=== PATIENT | female | born 1950 | race Caucasian/White ===

== ENCOUNTER 2023-12-03 06:13 | Day surgery (SDC) | payer MEDICARE, SELFPAY ==
--- NOTE | 2023-11-16 09:05 | CM ---
Patient is scheduled for an elective L Reverse TSA on 12/03/23- she is a same day patient. Spoke with patient prior to surgery. Introduced role of Orthopedic Navigator. Patient reports that she lives alone in a two story home. Currently she functions
independently. She has a stair glide to the second floor (she occasionally uses this), walkers, cane and transfer tub bench. She has never had VN services. PCP is Dr. Nadia Brenner.
Discussed orthopedic program and post surgical plans. Patient will return home when directed by surgeon. Reviewed MD follow up and transition to outpatient therapy. Patient is in agreement with tentative plan and states that her niece will be
staying with her for about a week.
Plan: Orthopedic Navigator will be involved in the care of patient after surgery and will reassess discharge needs at that time.
[2023-11-20 13:04] VITALS: BMI 41.4
[2023-11-20 13:46] LABS: Hematocrit 40.7 % (37.0-47.0); Hemoglobin 13.4 g/dL (12.0-16.0); Mean Corp Hgb Conc. 32.9 g/dL (33.0-37.0); Mean Corpuscular Hgb 31.8 pg (27.0-31.0); Mean Corpuscular Volume 96.4 fL (81.0-99.0); Mean Platelet Volume 9.2 fL (7.4-10.4); Platelet Count 332 10^3/uL (130-400); Red Blood Cell Count 4.22 10^6/uL (4.20-5.40); Red Cell Dist. Width 12.4 % (11.5-14.5)
[2023-11-20 13:59] LABS: ALT (SGPT) 22 U/L (0-35); AST (SGOT) 27 U/L (14-36); Albumin 4.4 g/dl (3.5-5.0); Alkaline Phosphatase 102 U/L (38-126); Blood Urea Nitrogen 21 mg/dl (7-17); Calcium 9.8 mg/dl (8.4-10.2); Carbon Dioxide 29 mmol/L (22-30); Chloride 100 mmol/L (98-107); Estimated Creatinine Clearance 99 ml/min; Glucose 105 mg/dl (70-99); Glycohemoglobin (HgbA1c) 5.9 % (4.0-5.6); Potassium 4.4 mmol/L (3.5-5.1); Sodium 138 mmol/L (135-145); Total Bilirubin 0.6 mg/dl (0.2-1.3); Total Protein 7.7 g/dl (6.3-8.2); eGFR > 60.00
[2023-11-20 15:59] VITALS: BMI 41.4
--- NOTE | 2023-11-30 13:26 | PTCARENOTE ---
Dr. Wesley guzman- 'ok' for SDS procedure
[2023-12-03] VITALS (11 sets, daily range): BP systolic 103–147; BP diastolic 60–88
[2023-12-03] MEDS: NORMOSOL-R 1000 IV (07:52)
--- NOTE | 2023-12-03 08:23 | SLEEP.APNEA ---
Sleep Apnea Order
-
Patient screened as High Risk for Sleep Apnea on Stop Bang Questionnaire. Patient referred to [facility] for Pre-Study.

Name: ANA MAST
: 1950
Home Phone: Use [email or web address] instead
Cell Phone: [f_Reg Other Phone]
Work Phone:
Address: [address] [place] [address]
City: [place]
State: [place]
Zip: [f_[facility] Zip]
Family Physician: Nadia Brenner
Height 5 ft 3.5 in
Actual Weight 107.6 kg
Body Mass Index (BMI) 41.4
Ordering Provider: Anne Negrete PA-C
[2023-12-03] MEDS: ANCEF 5 IV (13:28)
== END 2023-12-03 14:20 | disposition home or self-care (01) ==
LOC: SDS 06:13
PROVIDERS: ATTENDING PHYSICIAN Orthopaedic Surgery Hand Surgery; FAMILY PHYSICIAN Family Medicine; OTHER PHYSICIAN Internal Medicine Cardiovascular Disease
DX: M19.012 Primary osteoarthritis, left shoulder (principal)
CPT/HCPCS: 23472; 36415; 73020; 80053; 83036; 85027; 87070; C1713; C1776

== ENCOUNTER → 2024-05-16 12:25 | Outpatient (REF) | payer MEDICARE, SELFPAY ==
[2024-05-16 13:34] VITALS: BMI 38.7
[2024-05-16 13:47] LABS: Hematocrit 38.9 % (37.0-47.0); Hemoglobin 12.9 g/dL (12.0-16.0); Mean Corp Hgb Conc. 33.2 g/dL (33.0-37.0); Mean Corpuscular Hgb 31.5 pg (27.0-31.0); Mean Corpuscular Volume 94.9 fL (81.0-99.0); Mean Platelet Volume 8.9 fL (7.4-10.4); Platelet Count 309 10^3/uL (130-400); Red Cell Dist. Width 13.2 % (11.5-14.5); White Blood Cell Count 6.2 10^3/uL (4.8-10.8)
[2024-05-16 14:01] LABS: ALT (SGPT) 22 U/L (0-35); AST (SGOT) 27 U/L (14-36); Albumin 4.6 g/dl (3.5-5.0); Alkaline Phosphatase 100 U/L (38-126); Blood Urea Nitrogen 18 mg/dl (7-17); Calcium 9.7 mg/dl (8.4-10.2); Carbon Dioxide 29 mmol/L (22-30); Chloride 101 mmol/L (98-107); Estimated Creatinine Clearance 66 ml/min; Glucose 97 mg/dl (70-99); Potassium 4.6 mmol/L (3.5-5.1); Sodium 138 mmol/L (135-145); Total Bilirubin 0.6 mg/dl (0.2-1.3); Total Protein 7.7 g/dl (6.3-8.2); eGFR > 60.00
== END ==
LOC: SDSPAT 12:25
PROVIDERS: ATTENDING PHYSICIAN Orthopaedic Surgery Orthopaedic Surgery of the Spine; FAMILY PHYSICIAN Family Medicine; OTHER PHYSICIAN Internal Medicine Cardiovascular Disease
DX: Z01.818 Encounter for other preprocedural examination (principal)
CPT/HCPCS: 36415; 80053; 85027; 87070

== ENCOUNTER 2024-05-28 06:01 | Day surgery (SDC) | payer MEDICARE, SELFPAY ==
[2024-05-16 16:39] VITALS: BMI 38.7
[2024-05-21 16:41] VITALS: BMI 38.7
--- NOTE | 2024-05-27 10:36 | VNURNOTE ---
Home health liaison called patient and spoke to her about VN services after her surgery. Explained visit schedule, frequency, homebound status. Patient is agreeable and understands that visits in the home will be 1-2 x week to assess and teach
medical management. Patient is aware visiting nurse will contact her for SOC visit 1-2 days after being discharged from . [facility] referral sent in [facility].
[2024-05-28] VITALS (15 sets, daily range): BP systolic 113–142; BP diastolic 54–83
[2024-05-28] MEDS: LYRICA 150 MG PO (08:34)
[2024-05-28] MEDS: CELEBREX 200 MG PO (08:34)
[2024-05-28] MEDS: SKELAXIN 800 MG PO ×3 (08:34→22:35)
[2024-05-28] MEDS: TYLENOL 1000 MG PO ×3 (08:35→20:37)
[2024-05-28] MEDS: NORMOSOL-R 1000 IV ×3 (08:36→20:48)
[2024-05-28] MEDS: DILAUDID 0.5 MG IV ×2 (11:57→12:10)
--- NOTE | 2024-05-28 12:07 | W.DS.TRANS ---
DC Summary - Manager Protein
-
Discharge Instructions:
Sleep Apnea Risk Intermediate
Discharge Diagnosis/Procedures L4-[address] Coombs 05/28/24
Diet As tolerated
Activity No strenuous activity
Driving Restrictions No driving
Instructions:
Stand-Alone Forms:
Changes to Home Medications: Yes
Discharge Medications:
DC Medications w/original date entered in [facility]
cholecalciferol (vitamin D3) 50 mcg (2,000 unit) capsule (Vitamin D3) 2,000 unit PO DAILY 12/01/15
Lactobacills gasseri-Bifidobac bifidum,longum 1.5 billion cell capsule (Probiotic Colon Care) 1 cap PO DAILY 11/19/23
atorvastatin 20 mg tablet 20 mg PO HS 11/19/23
biotin 5,000 mcg chewable tablet 5,000 mcg PO DAILY 11/19/23
cetirizine 5 mg tablet 5 mg PO DAILY PRN allergy 11/19/23
frfslhkhheb-nucgunlss-ape C-Mn 500 mg-400 mg capsule 3 cap PO DAILY 11/19/23
levothyroxine 200 mcg tablet (Synthroid) 200 mcg PO DAILY 11/19/23
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
zfxxdsvm-mslb-vbro 8 mg-folic 400 mcg-K 50 mcg-lutein 300 mcg tablet (Centrum Silver Women) 1 tab PO DAILY 11/19/23
omeprazole 20 mg tablet,delayed release 20 mg PO HS 11/19/23
psyllium husk 3.4 gram/5.4 gram oral powder (Metamucil) 1 - 2 tbsp PO PRN PRN constipation 11/19/23
cyclobenzaprine 10 mg tablet 10 mg PO DAILYPRN PRN muscle spasms #0 tabs 12/03/23
aspirin 81 mg tablet,delayed release 81 mg PO DAILY 05/21/24
diclofenac sodium 1 % topical gel 2 g topical PRN PRN joint pain 05/21/24
diphenhydramine HCl 25 mg tablet 50 mg PO PRN PRN Idiopathic angioedema 05/21/24
gabapentin 300 mg capsule 300 mg PO HS 05/21/24
Saccharomyces boulardii 250 mg capsule (Florastor) 250 mg PO BID #1 cap 05/28/24
acetaminophen 325 mg capsule 650 mg (2 x 325 mg) PO QID #60 caps 05/28/24
cephalexin 500 mg capsule 500 mg PO QID infection prevention #20 caps 05/28/24
dexamethasone 4 mg tablet 4 mg PO BID inflammation #6 tabs 05/28/24
docusate sodium 100 mg capsule (Colace) 100 mg PO BID #0 caps 05/28/24
hydromorphone 2 mg tablet 2 mg PO Q4H PRN moderate-severe pain #30 tabs 05/28/24
magnesium hydroxide 400 mg/5 mL oral suspension (Milk of Magnesia) 30 ml PO HS PRN Constipation #1 mL 05/28/24
ondansetron 4 mg disintegrating tablet 4 mg PO Q6H PRN n/v #20 tabs 05/28/24
sennosides 8.6 mg tablet (senna) 17.2 mg (2 x 8.6 mg) PO BID #0 tabs 05/28/24
tramadol 50 mg tablet 50 mg PO BID #0 tabs 05/28/24
Home Medication Changes
cephalexin 500 mg capsule 500 mg PO QID infection prevention #20 caps 05/28/24
dexamethasone 4 mg tablet 4 mg PO BID inflammation #6 tabs 05/28/24
docusate sodium 100 mg capsule (Colace) 100 mg PO BID #0 caps 05/28/24
hydromorphone 2 mg tablet 2 mg PO Q4H PRN moderate-severe pain #30 tabs 05/28/24
magnesium hydroxide 400 mg/5 mL oral suspension (Milk of Magnesia) 30 ml PO HS PRN Constipation #1 mL 05/28/24
ondansetron 4 mg disintegrating tablet 4 mg PO Q6H PRN n/v #20 tabs 05/28/24
sennosides 8.6 mg tablet (senna) 17.2 mg (2 x 8.6 mg) PO BID #0 tabs 05/28/24
tramadol 50 mg tablet 50 mg PO BID #0 tabs 05/28/24
Pending Results: No
[2024-05-28] MEDS: ULTRAM 50 MG PO ×3 (14:33→22:34)
--- NOTE | 2024-05-28 17:41 | PTCARENOTE ---
Patient admitted from [facility] L4-L5 PSF with instrumentation.The patient rates her pain at a 3 out of 10.Vital signs are stable.Neurovascular assessment is within normal limits and ongoing.The dressing is intact without drainage.The patient is in
her bed with the call brothers in reach.
[2024-05-28] MEDS: VISBIOME 1 CAP PO (18:16)
[2024-05-28] MEDS: ANCEF 5 IV (18:16)
[2024-05-28] MEDS: SYNTHROID PO (18:16)
[2024-05-28] MEDS: SENOKOT 17.2 MG PO (20:36)
[2024-05-28] MEDS: COLACE 100 MG PO (20:36)
[2024-05-28] MEDS: LYRICA 75 MG PO (20:37)
[2024-05-28] MEDS: PROTONIX 40 MG PO (22:34)
[2024-05-28] MEDS: SINGULAIR 10 MG PO (22:35)
[2024-05-28] MEDS: LIPITOR 20 MG PO (22:35)
[2024-05-29] MEDS: ANCEF 5 IV (02:30)
[2024-05-29] MEDS: TYLENOL 1000 MG PO ×3 (02:30→15:00)
[2024-05-29] MEDS: ULTRAM 50 MG PO ×3 (02:30→09:17)
[2024-05-29] MEDS: SYNTHROID 200 MCG PO (06:02)
[2024-05-29] MEDS: SKELAXIN PO (06:03)
[2024-05-29 07:53] VITALS: BP 132/64
[2024-05-29 08:54] LABS: Hematocrit 34.1 % (37.0-47.0); Hemoglobin 11.2 g/dL (12.0-16.0)
[2024-05-29] MEDS: SENOKOT 17.2 MG PO (09:17)
[2024-05-29] MEDS: VISBIOME 1 CAP PO (09:17)
[2024-05-29] MEDS: LYRICA 75 MG PO (09:17)
[2024-05-29] MEDS: COLACE 100 MG PO (09:17)
[2024-05-29] MEDS: NORMOSOL-R IV (09:17)
[2024-05-29 09:53] LABS: Blood Urea Nitrogen 11 mg/dl (7-17); Calcium 8.6 mg/dl (8.4-10.2); Carbon Dioxide 35 mmol/L (22-30); Chloride 102 mmol/L (98-107); Estimated Creatinine Clearance 85 ml/min; Glucose 98 mg/dl (70-99); Potassium 4.2 mmol/L (3.5-5.1); Sodium 142 mmol/L (135-145); eGFR > 60.00
[2024-05-29 11:13] VITALS: BP 131/70; O2SAT 94
[2024-05-29] MEDS: DILAUDID 2 MG PO (11:40)
[2024-05-29 11:48] VITALS: BP 121/58
--- NOTE | 2024-05-29 11:50 | W.PN.ORTHO ---
Today's Communication / Plan
-
d/c PT OT/VN
Assessment
.
Distal Motor Intact: Yes
Dressing:
Clean, dry and intact.
Plan
.
Surgery / Date: L4-[address] Coombs 05/28/24
Activity:
Out of bed.
PT/OT
Discharge Plan: Home w/ VN
Subjective
.
.:
Patient resting comfortably.
Vital Signs and Labs
.
Vital Signs and Labs:
Lab Results
05/29/24 08:24
05/29/24 08:24
Temp Pulse Resp BP Pulse Ox
98.1 F 90 17 121/58 93
05/29/24 11:48 05/29/24 11:48 05/29/24 11:48 05/29/24 11:48 05/29/24 11:48
Physical Exam
-
HEENT: No pallor, cyanosis, or jaundice. Throat clear.
NECK: Supple. No JVD.
RESPIRATORY: Lungs clear to auscultation.
CVS: S1, S2 normal. RRR.� No murmur, rub or gallop.
ABDOMEN: Soft, non-tender. No distension. BS+/normal.
EXTREMITIES: strength equal, no calf pain with palpation
HEAD CLEANING PORTER: AOx3. No focal deficits. retail pharmacist grossly intact
[2024-05-29 12:59] VITALS: BP 117/85; PULSE 85; O2SAT 93
--- NOTE | 2024-05-29 14:12 | CM ---
Met with patient at the bedside; initial assessment completed
IMM benefit explained; form signed @ [id number]
Pharmacy verified: [facility] @ [address] [facility], [place], [place]
Per request, contacted Admissions and added Secondary Contact to chart: Joan Harper (Neighbor) phone # [phone]
Patient reported she lives alone; 4 story home; 2 steps to enter; 14 steps between floors; full bath on the 1st floor; uses stair glide to 2nd floor; 2nd floor bathroom has shower stall with grab bar and shower seat
PLOF: patient reported that she was independent with ambulation and ADLs; if necessary she could walk up/down stairs
DME: 2 RWs
No SNF or Home Health utilization history
Neighbor will transport homej
Plan: Discharge to home today with Home Health Services from [facility] for VN, PT/OT
== END 2024-05-29 16:03 | disposition home health service (06) ==
LOC: SDS 06:01
PROVIDERS: Physician Assistant Medical; ATTENDING PHYSICIAN Orthopaedic Surgery Orthopaedic Surgery of the Spine; FAMILY PHYSICIAN Family Medicine
DX: M43.16 Spondylolisthesis, lumbar region (principal); M48.061 Spinal stenosis, lumbar region without neurogenic claudication
CPT/HCPCS: 22612; 22840; 20930; C1713; 72100; 76000; 80048; 85014; 85018; 97116; 97166; 97530; 97535

== ENCOUNTER 2024-05-31 15:34 | Inpatient (IN) | payer MEDICARE, SELFPAY ==
[2024-05-30 19:27] VITALS: BP 128/90
--- NOTE | 2024-05-30 19:36 | EDRN ---
Benton ACKERMAN in room w/ pt at this time.
[2024-05-30 19:41] VITALS: BMI 40.7
--- NOTE | 2024-05-30 19:41 | ED.GENMED ---
History of Present Illness
General
Chief Complaint: Back Pain
Source: patient
Exam Limitations: none
Time Seen by Provider: 05/30/24 19:27
History of Present Illness
History of Present Illness:
This is a 73 year old female that comes in by ambulance with inability to care for self and sleeping. States that she had Back surgery by Dr. Coombs. States that she was discharged yesterday. States that Friends came and picked her up. States that she
got home and she tried to put some things away. State that she took her medication that she was to take and went to bed around 4-4:30pm. States that VN was to come but she never heard them. States that she slept form yesterday until 5pm today.
States that she could hardly get OOB. States that she does feels dizzy. Denies any fever, chills, chest pain, SOB, abd pain, nausea, vomiting, diarrhea, headache, urinary burning.
Past History
Past History
ED Past Medical History: GERD, Hypercholesterolemia, Hypothyroidism and Other (Back pain, Neuropathy, Numbness arms and legs, PNA. )
ED Past Surgical History: Appendectomy, Cholecystectomy, Orthopedic (Rotator cuff repair, knee surgery, Carpal tunnel right, Right foot surgery, Laminectomy, Nerve ablation, Spinal fusion ) and Other (Pancreatic duct sphincterotomy, cataracts, Right
retinal tear, )
Social History
Tobacco: Former smoker
Alcohol: Occasional
Drug: None
Personal: Single
Living: alone
Review of Systems
Review of Systems
All Other Systems: ROS reviewed and negative except as documented in HPI and ROS
Constitutional: Reports no symptoms; Denies fever or chills
EENT: Reports no symptoms
Respiratory: Reports no symptoms; Denies cough or trouble breathing
Cardiac: Reports no symptoms; Denies chest pain
ABD/GI: Reports no symptoms; Denies abdominal pain, nausea, vomiting or diarrhea
: Reports no symptoms; Denies dysuria, frequency or urgency
Musculoskeletal: Reports no symptoms
Skin: Reports no symptoms
Neurological: Reports dizzy; Denies headache
Psychiatric: Reports no symptoms
Phy Exam
General Physical Exam
General Presentation: no apparent distress
General age: appears stated age
General Skin: warm and dry
General Habitus: elderly
General Mental: alert
General Hydration: dry mucous membranes
ENT Exam
ENT Exam: TM's normal, pharynx normal and neck supple
Eye Exam
Eye Exam: EOMI
Cardiovascular Exam
Cardiovascular Exam: regular rate/rhythm, no edema, no murmur and normal peripheral pulses
Pulmonary Exam
Pulmonary Exam: lungs clear, no respiratory distress, no rales, chest non tender, no crackles, no rhonchi, no wheezing and no cough
Gastrointestinal Exam
Gastrointestinal Exam: normal bowel sounds, non tender, soft, no organomegaly, no pulsatile mass and non distended
Musculoskeletal Exam
Musculoskeletal Exam: full ROM and no edema
Skin Exam
Skin Exam: normal color, warm/dry, no rash, no petechia and other (Dressing maintained to low back, dry and clean)
Psychiatric Exam
Psychiatric Exam: normal mood/affect
Course
Orders/Labs/Results
Orders:
Orders
05/30/24 19:41
0.9% Sodium Chloride 1000 ml [Nss] 1,000 ml IV BOLUS
05/30/24 19:51
Electrocardiogram (*1) Urgent
Reason for Study: Fatigue / Weakness
EKG- Treatment ONCE
CR Chest - 2 Views Urgent
Comment:
Reason For Exam: Hypoxia
05/30/24 19:55
COVID-19 Antigen Urgent
Source: Nasal Swab
Complete Blood Count/With Diff Urgent
05/30/24 21:20
Comprehensive Metabolic Panel Urgent
Troponin I Urgent
05/30/24 21:54
Acetaminophen 1000MG/100Ml [Ofirmev] 1,000 mg in 100 ml IV ONCE
Acetaminophen IV Indication:: ED Narcotic Naive Pt-ONCE
05/30/24 22:16
CT Chest Pe Study Urgent
Comment:
Reason For Exam: Elevated Troponin, Hypoxia.
05/30/24 22:59
Admit/Transfer Patient As Directed
Co-Sign Provider:
Level of Care: Observation services
Assign to:: Telemetry
Physician / Group: antelmo smith
Diagnosis: unintentional medication overdose causing hyerpsomnnia, non ischemic mi inj
Reason for Telemetry: Arrhythmia
Date to Stop Telemetry: 06/02/24
Time to Stop Telemetry: 11:00
Reason for Hospitalization: unintentional medication overdose causing hyerpsomnnia, non ischemic mi inj
Code Status As Directed
Resuscitation Status: Full Code
05/30/24 23:00
Flush (0.9% Sodium Chloride) [Flush (Nss)] See Dose Instructions IV PER PROTOCOL
05/30/24 23:03
PRN Pain Medication Management As Directed
May give lesser potent ordered pain med per pt: Yes
preference::
Protocol:: Medication orders for pain may be administered in a
manner that supports deferring to patient preference
when the pt is:
- Requesting an ordered lesser potent pain medication.
Least to most potent pain medications are defined
as: acetaminophen < NSAID < tramadol < opioids
(morphine, oxycodone, hydromorphone).
- Requesting a lesser dose of the same medication IF
ORDERED.
- Requesting a less intrusive route of administration
if both routes are prescribed by the provider (PO <
IV).
05/30/24 23:08
CARDIOLOGY CONSULT Routine
Consulting Provider: Fransico [place]
Was physician already notified: No
Reason for consult: Nonischemic myocardial injury status post unintentional OD pain meds
Consult Notification Routine
Specialty to Notify: Cardiology
Date consulting provider notified: 05/31/24
Time consulting provider notified: 07:45
Notified:: Provider
05/31/24 01:34
0.9% Sodium Chloride 1000 ml [Nss] 1,000 ml IV 60 mls/hr
Bisacodyl [Dulcolax] 10 mg RECTAL [id number] PRN
Cyclobenzaprine HCl [Flexeril] 10 mg PO DAILYPRN PRN
Docusate W/Senna [Senokot-S] 1 tablet PO BIDPRN PRN
Ondansetron Orally Disint [Zofran Odt (Orally Disintegrating)] 4 mg PO Q6HPRN PRN
Polyethylene Glycol Powder [Miralax] 17 grams PO DAILYPRN PRN
05/31/24 01:34
Activity As Directed
Activity Level: As Tolerated
Intake/ Output As Directed
Frequency: Per unit guidelines
Pneumatic Compression Sleeves As Directed
Type: Knee high
Vital Signs As Directed
Frequency: Per unit guidelines
Pulse Ox/spot Check [RESP] Routine
Quantity: 1
Ot Eval And Treat Routine
Pt Eval And Treat Routine
Activity Level: With Assistance
DX Deep Vein Thrombosis Video Routine
05/31/24 02:04
Pt Screening Request from Abdirashid Routine
05/31/24 02:32
Tramadol HCl [Ultram] 50 mg PO NOW STA
05/31/24 06:00
EKG [Electrocardiogram (*1)] IN AM
Reason for Study: Other
Other Reason for Exam: elevated troponin
Levothyroxine [Synthroid] 200 mcg PO DAILY @ 0600
05/31/24 06:44
Complete Blood Count/With Diff IN AM
Comprehensive Metabolic Panel IN AM
Troponin I Urgent
05/31/24 08:00
Acetaminophen [Tylenol] 650 mg PO QID
Cephalexin Monohydrate [Keflex] 500 mg PO QID
Cholecalciferol (Vitamin D3) [VITAMIN D3 (cholecalciferol)] 50 mcg PO DAILY
Dexamethasone [Decadron] 4 mg PO BID
Docusate Sodium [Colace] 100 mg PO BID
Lactobac/Bifidobac [Visbiome] 1 cap PO DAILY
Tramadol HCl [Ultram] 50 mg PO BID
biotin 5,000 mcg PO DAILY
05/31/24 14:30
Echo 2D MMode Color/Doppler Routine
05/31/24 15:31
Change in Level of Care [Level of Care Change] As Directed
Level of Care: Inpatient admission
Reason for Hospitalization: unintentional overdose of prescription of narcotic medication, troponin elevation
of unexplained cardiac pathology
Expected length of stay greater than two midnights?: Yes
ELOS- Estimated Length of Stay in days: 2
I certify the patient meets the requirements for IP care: Yes
05/31/24 15:32
HYDROmorphone [Dilaudid] 1 mg PO Q6HPRN PRN
05/31/24 15:33
Tramadol HCl [Ultram] 50 mg PO Q6HPRN PRN
05/31/24 17:05
Urine Drug Abuse Screen Routine
Date Specimen was Collected: 05/31/24
Time Specimen was Collected: 15:05
05/31/24 22:00
Atorvastatin [Lipitor] 20 mg PO HS
Montelukast Sodium [Singulair] 10 mg PO HS
Pantoprazole [Protonix] 40 mg PO HS
06/01/24 06:28
Complete Blood Count/With Diff IN AM
Comprehensive Metabolic Panel IN AM
06/01/24 22:00
Gabapentin [Neurontin] 300 mg PO HS
06/02/24 11:00
DC Protocol for Telemetry ONCE
Abnormal Lab Results
05/30/24 05/30/24 05/31/24
19:55 21:20 06:44
WBC 14.9 H 10^3/uL
(4.8-10.8)
RBC 3.69 L 10^6/uL 3.40 L 10^6/uL
(4.20-5.40) (4.20-5.40)
Hgb 11.6 L g/dL 10.7 L g/dL
(12.0-16.0) (12.0-16.0)
Hct 35.1 L % 32.6 L %
(37.0-47.0) (37.0-47.0)
MCH 31.4 H pg 31.5 H pg
(27.0-31.0) (27.0-31.0)
MCHC 32.8 L g/dL
(33.0-37.0)
Abs Immat Gran (auto) 0.1 H 10^3/uL
(0-0.05)
Absolute Neuts (auto) 11.3 H 10^3/uL 7.4 H 10^3/uL
(1.4-6.5) (1.4-6.5)
Absolute Monos (auto) 2.1 H 10^3/uL 1.4 H 10^3/uL
(0.1-0.6) (0.1-0.6)
Neutrophils % 76.2 H %
(42.2-75.2)
Lymphocytes % 8.9 L % 15.4 L %
(20.5-51.1) (20.5-51.1)
Monocytes % 14.2 H % 13.2 H %
(1.7-9.3) (1.7-9.3)
Carbon Dioxide 31 H mmol/L 33 H mmol/L
(22-30) (22-30)
Glucose 112 H mg/dl
(70-99)
AST 66 H U/L 51 H U/L
(14-36) (14-36)
ALT 36 H U/L
(0-35)
Troponin I 0.509 H* ng/ml 0.336 H* ng/ml
05/31/24 06:44
05/31/24 06:44
Leukocytosis, H/H slighty low. Hyperglycemia. AST/ALT mildly elevated. COVID negative. Troponin 0.509
Vital Signs
Initial and Last Documented VS:
Initial Vital Signs
Temp Pulse Resp BP Pulse Ox
99.7 F 91 16 128/90 91
05/30/24 19:27 05/30/24 19:27 05/30/24 19:27 05/30/24 19:27 05/30/24 19:27
Last Documented Vital Signs
Temp Pulse Resp BP Pulse Ox
97.9 F 82 16 143/69 95
06/01/24 15:17 06/01/24 15:17 06/01/24 15:17 06/01/24 15:17 06/01/24 15:17
MDM/Problems Addressed
Differential Diagnosis Includes:
Overmedicated
MDM/Problems Addressed:
This is a 73 year old female that comes in by ambulance after being discharged yesterday after having a spinal fusion. States that she got home yesterday and went to bed around 4-4:30pm and never woke up until 5pm today. States that she can't care
for herself.
Will get labs, IV fluids and admit.
Chronic conditions affecting care:
Spinal fusion
Acute Exacerbation and/or Progression of Chronic Illness:
Spinal fusion
*Radiology
Radiology exam reviewed: preliminary read by ED provider (Chest- Negative for active disease. ), radiology read reviewed (CT Night hawk-NO evidence of pulmonary artery embolus or thoracic aortic dissection. Prominent aortic and coronary artery
calcifications. Aortic valve calcifications. Moderate cardiomegaly. Probable trace right pleural effusion. No left pleural or pericardial effusions. Mild centrilobular emphysema ), all reviewed NAD by ED Provider (Ct cont- Mild atelectasis at the
lung bases. Mild geographic groundglass opacities in the bilateral lungs likely related to atelectasis, hypoinflation, or mild volume overload. No definite evidence of pneumonia. Small exophytic left renal cyst. Left shoulder arthroplasty. Prominent
multilevel ) and other (CT cont- degenerative changes within the spine. Multiple large anterior bridging osteophytes in the spine. )
*Pulse Oximetry
Patient hypoxic: no
Comment: 87%
*EKG
Interpreted by ED Provider?: Yes
Heart Rate: 90
Rate: normal
Rhythm: sinus
Reva: left axis deviation
Interval: normal interval
QRS Pattern: right bundle branch block
Ischemia: T-wave inversion (III, aVR, aVF, V1, V2, V3, V4, )
*High Density Press Operator Interpretation
Rate: normal
Heart Rate: 91
Rhythm: sinus
*Critical Care Note
Total Time (30-74mins, 75-104mins- exclusive of procedures): Not Applicable
ED Attending Note
-
Portions of this chart may have been created with voice recognition software.� Occasional wrong word or��sound alike� substitutions may have occurred due to the inherent limitations of voice recognition software.
Discharge Plan
Departure
Patient Disposition: Admit
Date of Disposition: 05/30/24
Time of Disposition: 21:31
Admit to: Med/Surg
Presentation/result/management discussed w/ accepting MD/DO: Hospitalist
Patient with high blood pressure during this ER visit?: Yes
Condition: Good
Covid-19: Negative COVID-19
Discharge Problem:
Ambulatory dysfunction, Elevated troponin
Interventions
Interventions:
*General Assessment Last Done: 05/30/24 19:42
*Neglect/Abuse Screening Last Done: 05/30/24 19:27
ED- Fall Risk Assessment Last Done: 05/30/24 19:40
*Nursing Disposition Last Done: 05/31/24 01:44
ED-Musculoskeletal Assessment Last Done: 05/30/24 22:17
Discharge Date and Time
Discharge Date/Time: 05/31/24 01:44
[2024-05-30] MEDS: NSS 1000 IV (20:03)
[2024-05-30 20:04] LABS: % Basophils 0.3 % (0-2); % Eosinophils 0.1 % (0-6); % Immature Granulocytes 0.3 % (0-0.5); % Lymphocytes 8.9 % (20.5-51.1); % Monocytes 14.2 % (1.7-9.3); % Neutrophils 76.2 % (42.2-75.2); Absolute Basophils 0.1 10^3/uL (0-0.2); Absolute Immature Granulocytes 0.1 10^3/uL (0-0.05); Absolute Lymphocytes 1.3 10^3/uL (1.2-3.4); Absolute Monocytes 2.1 10^3/uL (0.1-0.6); Absolute Neutrophils 11.3 10^3/uL (1.4-6.5); Hematocrit 35.1 % (37.0-47.0); Hemoglobin 11.6 g/dL (12.0-16.0); Mean Corpuscular Hgb 31.4 pg (27.0-31.0); Mean Corpuscular Volume 95.1 fL (81.0-99.0); Mean Platelet Volume 8.7 fL (7.4-10.4); Nucleated Red Blood Cells % 0 %; Platelet Count 259 10^3/uL (130-400); Red Blood Cell Count 3.69 10^6/uL (4.20-5.40); Red Cell Dist. Width 13.1 % (11.5-14.5); White Blood Cell Count 14.9 10^3/uL (4.8-10.8)
[2024-05-30 20:19] LABS: COVID-19 Antigen Negative (Negative)
[2024-05-30 21:43] LABS: ALT (SGPT) 36 U/L (0-35); AST (SGOT) 66 U/L (14-36); Alkaline Phosphatase 120 U/L (38-126); Blood Urea Nitrogen 12 mg/dl (7-17); Calcium 8.8 mg/dl (8.4-10.2); Carbon Dioxide 31 mmol/L (22-30); Chloride 101 mmol/L (98-107); Estimated Creatinine Clearance 98 ml/min; Glucose 112 mg/dl (70-99); Potassium 4.6 mmol/L (3.5-5.1); Sodium 140 mmol/L (135-145); Total Protein 6.9 g/dl (6.3-8.2); eGFR > 60.00
[2024-05-30 21:49] VITALS: BP 128/80
[2024-05-30 22:00] VITALS: BP 134/69
[2024-05-30] MEDS: OFIRMEV 100 IV (22:00)
[2024-05-30 22:01] LABS: Troponin I 0.509 ng/ml
--- NOTE | 2024-05-30 22:15 | HPS.HSE ---
Family Physician
-
Family Physician: Nadia Brenner
Chief Complaint
-
Episode hypersomnia x 24 hours, ambulatory dysfunction status post lumbar fusion 2 days ago
History of Present Illness
73-year-old female from home, where she lives alone states she had back surgery L4-L5 spinal fusion due to spondylolisthesis/stenosis by Dr. COOMBS on 05/28/2024 . She reports she was discharged yesterday 05/29/2020 for got home fell asleep around 4:30
PM and slept until 5 PM today 05/30/2024. She reports taking her new medications and mixing them with her routine medication she has in a medication box. She was not aware the pain medications were as needed according to pain level. She took
Dilaudid 2 to 4 mg along with tramadol 50 mg, Flexeril 10 mg and her gabapentin 300 mg prior to falling asleep at 4 PM. She missed the visiting nurse coming. She reports difficulty getting out of bed along with feeling dizzy. She denies chest
pain, palpitations, shortness with, cough, fever, chills, abdominal pain, nausea, vomiting, diarrhea, headache, urinary symptoms. She denies history of sleep apnea. Her meloxicam has been on hold for 2 weeks prior to surgery. She is to resume her
aspirin on June 02 according to discharge paperwork. She has past medical history of chronic back pain/neuropathy to arms and legs with Prior L4-L5 laminectomy, GERD, HLD, hypothyroidism, former smoker
Medical History
Past Medical History
Past Medical History: Reports Other
Additional Past Medical History:
chronic back pain/neuropathy to arms and legs with Prior L4-L5 laminectomy
GERD
HLD
hypothyroidism
former smoker
Past Surgical History: Reports Other
Additional Past Surgical History:
Appendectomy
Cholecystectomy
Rotator cuff repair
Knee surgery
CTR right
Right foot surgery
Laminectomy L4-L5
Nerve ablation
Spinal fusion
Pancreatic duct sphincterectomy
Right retinal tear repair
Cataract extraction
Social History
Tobacco: Former Smoker
Alcohol: None
Drug: None
Personal: Single
Living: Alone
Family History
Family History: Not pertinent
Allergies / Home Medications
Allergies reflects when Allergies were last updated in [employer].
Home Medications with original date entered in [employer]
Allergy/Medication List:
Allergies
Allergy/AdvReac Type Severity Reaction Status Date / Time
adhesive tape Allergy raised Verified 05/30/24 19:25
welts
lorazepam AdvReac Hallucinati Verified 05/30/24 19:25
on
Home Medications
Lactobacills gasseri-Bifidobac bifidum,longum 1.5 billion cell capsule (Probiotic Colon Care) 1 cap PO DAILY 11/19/23
atorvastatin 20 mg tablet 20 mg PO HS 11/19/23
biotin 5,000 mcg chewable tablet 5,000 mcg PO DAILY 11/19/23
cetirizine 5 mg tablet 5 mg PO DAILY PRN seasonal allergy 11/19/23
npbxnuollqh-txpesjcwp-oxr C-Mn 500 mg-400 mg capsule 3 cap PO DAILY 11/19/23
levothyroxine 200 mcg tablet (Synthroid) 200 mcg PO DAILY 11/19/23
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
igntiboz-nbmj-wojo 8 mg-folic 400 mcg-K 50 mcg-lutein 300 mcg tablet (Centrum Silver Women) 1 tab PO DAILY 11/19/23
omeprazole 20 mg tablet,delayed release 20 mg PO HS 11/19/23
psyllium husk 3.4 gram/5.4 gram oral powder (Metamucil) 1 - 2 tbsp PO PRN PRN constipation 11/19/23
cyclobenzaprine 10 mg tablet 10 mg PO DAILYPRN PRN muscle spasms #0 tabs 12/03/23
aspirin 81 mg tablet,delayed release 81 mg PO DAILY 05/21/24
diphenhydramine HCl 25 mg tablet 50 mg PO PRN PRN Idiopathic angioedema 05/21/24
gabapentin 300 mg capsule 300 mg PO HS 05/21/24
Saccharomyces boulardii 250 mg capsule (Florastor) 250 mg PO BID #1 cap 05/28/24
acetaminophen 325 mg capsule 650 mg (2 x 325 mg) PO QID #60 caps 05/28/24
cephalexin 500 mg capsule 500 mg PO QID infection prevention #20 caps 05/28/24
dexamethasone 4 mg tablet 4 mg PO BID inflammation #6 tabs 05/28/24
docusate sodium 100 mg capsule (Colace) 100 mg PO BID #0 caps 05/28/24
hydromorphone 2 mg tablet 2 mg PO Q4H PRN moderate-severe pain #30 tabs 05/28/24
magnesium hydroxide 400 mg/5 mL oral suspension (Milk of Magnesia) 30 ml PO HS PRN Constipation #1 mL 05/28/24
ondansetron 4 mg disintegrating tablet 4 mg PO Q6H PRN n/v #20 tabs 05/28/24
sennosides 8.6 mg tablet (senna) 17.2 mg (2 x 8.6 mg) PO BID #0 tabs 05/28/24
tramadol 50 mg tablet 50 mg PO BID #0 tabs 05/28/24
cholecalciferol (vitamin D3) 50 mcg (2,000 unit) tablet 50 mcg PO DAILY 05/30/24
Review of Systems
-
History Source: Patient
A 12 point ROS was completed and negative except as noted: Yes
Constitutional: Denies Fever or Chills
EENT: Reports Other (Dry mouth)
Respiratory: Denies Cough or Trouble Breathing
Cardiac: Denies Chest Pain, Diaphoresis, Palpitations or Syncope
Abdomen/GI: Denies Abdominal Pain, Nausea, Vomiting, Diarrhea, Constipated, Bloody Stools or Black Stools
: Denies Dysuria, Frequency, Flank Pain, Incontinence, Difficulty Voiding or Urgency
Musculoskeletal: Denies Joint Pain or Edema
Skin: Denies Itching or Rash
Neurological: Denies Dizzy, Headache or Weakness
Endocrine: Reports No Symptoms
Hematologic/Lymphatic: Reports No Symptoms
Psych: Reports Calm
Physical Exam
Vital Signs
Vital Signs
Temp Pulse Resp BP Pulse Ox
99.7 F 91 21 128/90 91
05/30/24 19:27 05/30/24 19:27 05/30/24 21:00 05/30/24 19:27 05/30/24 19:27
Physical Exam
General: Comfortable, Conversant and Other (Dry mouth, confusion over how she is to take her home medications with new medications)
HEENT: NormoCephalic, Anicteric, PERRLA, [place] Conjunctivae, No Ptosis and Other (Dry oral mucosa)
Respiratory: Clear; No Wheezes, Rales or Rhonchi
Cardiac: S1/S2 and Regular Rhythm; No Murmur, Rub, Gallop or Peripheral Edema
Breast: Deferred by me
GI: Soft, Non Tender, Non Distended, Normal Bowel Sounds and No Hepatosplenomegaly
Rectal: Deferred by Provider
Genito-urinary: Deferred by me
Musculoskeletal: No Clubbing, No Cyanosis and No Edema
Skin: Warm, Dry and Other (Dressing over lower lumbar area intact no surrounding erythema or drainage); No Rash
Neuro: AO x 3 (At present time with current confusion over how to take her medications she was recently given), Cranial Nerves Intact and No Sensory Deficits; No Slurred Speech, Facial Droop, Tremors or Sedated
Psych: Calm
Laboratory Results
-
05/30/24 19:55
05/30/24 21:20
Laboratory Results
Total Bilirubin 1.0 mg/dl (0.2-1.3) 05/30/24 21:20
AST 66 U/L (14-36) H 05/30/24 21:20
ALT 36 U/L (0-35) H 05/30/24 21:20
Alkaline Phosphatase 120 U/L (38-126) 05/30/24 21:20
Troponin I 0.509 ng/ml H* 05/30/24 21:20
Data Reviewed
-
Lab Data: Labs Reviewed by me
Impression/Plan
-
Impression/plan:
Observation telemetry
#Acute leukocytosis likely reactive from recent surgery/steroid
#S/P L4-L5 spinal fusion due to spondylolisthesis/stenosis by Dr. Coombs on 05/28/2024
WBC 14.9 with left shift, 99.7F, HR 91, 128/90
-Monitor CBC
#Nonischemic myocardial injury possibly secondary to hypoxia with sleeping x 24 hours
Patient denies any chest pain or shortness of breath
Troponin 0.509 will trend
-Continue atorvastatin 20 mg at bedtime patient's aspirin has been on hold since before surgery
-Consult cardiology-CBC
EK bpm NSR, QTc 484 MS, RBBB no significant change from December 18, 2015
#Hypersomnia x 24 hours-likely secondary to accidental overdose opiates/gabapentin
Slept from 05/29/2024 at 430 till 5:30 PM on 05/30/2024
Patient reports taking new medications and combining them with all of her routine scheduled medications. She took tramadol 50 mg, Flexeril 10 mg, gabapentin 300 mg and Dilaudid 2 to 4 mg yesterday at 4 PM prior to her falling asleep for 24 hours.
Had a long discussion with the patient some of these medications are to be used as needed and others used at bedtime and not mixed together
-HOLD hydromorphone 2 mg every 4 hours moderate�severe pain
-Continue Tylenol 650 mg 4 times daily scheduled
-May continue tramadol 50 mg twice daily
-PT/OT/case management consult
#Chronic back pain/neuropathy to arms and legs with Prior L4-L5 laminectomy
-Continue gabapentin 300 mg at bedtime, tramadol 50 mg twice daily
-Continue bowel regimen
#GERD
-Continue omeprazole 20 mg at bedtime
#HLD
Continue atorvastatin 20 mg at bedtime
#Hypothyroidism
-Continue levothyroxine 200 mcg p.o. daily
#Former smoker
#Obesity due to excess calorie consumption�BMI 40.6
Weight loss recommended
Low-fat healthy heart diet
DVT prophylaxis
SCDs
Full code
--- NOTE | 2024-05-30 23:12 | W.PN.UPDATE ---
Addendum entered and electronically signed by Eh Del Rosario MD 05/31/24 03:16:
This note serves as an addendum to the H&P by auto brake technician REUBEN Brittny HARRISON
Original Note:
Update Note
Progress Note Update
HPI:
73F from Home recent L4-L5 spinal fusion due to spondylolisthesis/stenosis by Dr. COOMBS on 05/28/2024 and was discharged yesterday 05/29/2020.
As soon as she got home fell asleep around 4:30 PM and slept until 5 PM today 05/30/2024.
She reports taking her new medications and mixing them with her routine medication she has in a medication box. She was not aware the pain medications were as needed according to pain level. She took Dilaudid 2 to 4 mg along with tramadol 50 mg,
Flexeril 10 mg and her gabapentin 300 mg prior to falling asleep at 4 PM.
- She missed the visit by VN
- reports difficulty getting out of bed along with feeling dizzy.
- meloxicam has been on hold for 2 weeks prior to surgery.
- She is to resume her aspirin on June 02 according to discharge paperwork.
ROS: denies chest pain, palpitations, shortness with, cough, fever, chills, abdominal pain, nausea, vomiting, diarrhea, headache, urinary symptoms.
PHX:
chronic back pain/neuropathy to arms and legs with Prior L4-L5 laminectomy
GERD
HLD
hypothyroidism
former smoker
Reviewed VS:
Vital Signs
Temp Pulse Resp BP Pulse Ox
99.7 F 91 16 134/69 97
05/30/24 19:27 05/30/24 22:15 05/30/24 22:15 05/30/24 22:00 05/30/24 22:15
PE
General: Conversant , Dry mouth, confusion over how she is to take her home medications with new medications
HEENT: NormoCephalic, Anicteric,
Respiratory: Clear
Cardiac: S1/S2 , RRR No Murmur. No peripheral Edema
GI: Soft, Non Tender, Non Distended, Normal Bowel Sound
Rectal: Deferred by Provider
Genito-urinary: Deferred by me
MS : No Clubbing, No Cyanosis and No Edema
Skin:Dressing over lower lumbar area intact no surrounding erythema or drainage
Neuro: AO x 3 (At present time with current confusion over how to take her medications she was recently given)
Psych: Calm
Data
05/29/24 05/30/24 05/30/24
: 19:55 21:20
WBC 14.9 H
Hgb 11.2 L 11.6 L
Carbon Dioxide 31 H
Creatinine 0.6
eGFR > 60.00
Troponin I 0.509 H*
EK bpm NSR, QTc 484 MS, RBBB no significant change from December 18, 2015
Last hospitalist admission:
ASSESSMENT & PLAN
Pending Rx reconciliation
Acute hyperactive encephalopathy secondary to accidental overdose opiates/gabapentin
Resolved hypervigilance during ER stay
- Hold parameters on sedative medications
- Hold hydromorphone 2 mg every 4 hours moderate�severe pain
- cont. tramadol 50 mg twice daily
- fall precaution
- PT/OT/CRM consult
NICM suspected : Troponin 0.509 will trend
- denies any chest pain or shortness of breath
- Holding ASA due to recent OR
- Continue atorvastatin
- CBC card consult
Acute leukocytosis likely reactive due to currently on Decadron and recent surgery
Recent L4-L5 spinal fusion due to spondylolisthesis/stenosis by Dr. Coombs on 05/28/2024
- trend CBC
Chronic back pain/neuropathy to arms and legs with Prior L4-L5 laminectomy
- cont chronic gabapentin 300 mg HS , tramadol 50 mg BID
- cont. bowel regimen
HLD
- cont Atorvastatin
Hypothyroidism
- cont. MATTE CUTTER levothyroxine
Former smoker
Obesity due to excess calorie consumption�BMI 40.6
- life style modification
- Low-fat healthy heart diet
DVT Px: SCD
Code: Full code
Obs TLM
[2024-05-30 23:27] VITALS: BP 129/70
[2024-05-31] VITALS (8 sets, daily range): BP systolic 121–149; BP diastolic 64–77; PULSE 94; O2SAT 98; BMI 40.5
--- NOTE | 2024-05-31 02:00 | PTCARENOTE ---
Pt arrived to room 432-01. Pt ambulated from stretcher to bed x1 assistance. Pt AAOx3, VSS. Pt on 2LO2. Pt c/o 9/10 lower back pain. Pt oriented to room, call brothers placed within reach.
--- NOTE | 2024-05-31 02:00 | PTCARENOTE ---
Pt arrived to room 432-01. Pt ambulated from stretcher to bed x1 assistance. Pt AAOx3, VSS. Pt c/o 06/10 lower back pain. Pt oriented to room, call brothers placed within reach.
[2024-05-31] MEDS: NSS 1000 IV (02:30)
[2024-05-31] MEDS: ULTRAM 50 MG PO ×2 (02:40→09:08)
[2024-05-31] MEDS: SYNTHROID 200 MCG PO (06:31)
[2024-05-31 07:28] LABS: % Basophils 0.4 % (0-2); % Eosinophils 1.1 % (0-6); % Immature Granulocytes 0.4 % (0-0.5); % Lymphocytes 15.4 % (20.5-51.1); % Monocytes 13.2 % (1.7-9.3); % Neutrophils 69.5 % (42.2-75.2); Absolute Eosinophils 0.1 10^3/uL (0-0.7); Absolute Lymphocytes 1.6 10^3/uL (1.2-3.4); Absolute Monocytes 1.4 10^3/uL (0.1-0.6); Absolute Neutrophils 7.4 10^3/uL (1.4-6.5); Hematocrit 32.6 % (37.0-47.0); Hemoglobin 10.7 g/dL (12.0-16.0); Mean Corp Hgb Conc. 32.8 g/dL (33.0-37.0); Mean Corpuscular Hgb 31.5 pg (27.0-31.0); Mean Corpuscular Volume 95.9 fL (81.0-99.0); Mean Platelet Volume 9.1 fL (7.4-10.4); Nucleated Red Blood Cells % 0 %; Platelet Count 246 10^3/uL (130-400); Red Cell Dist. Width 13.2 % (11.5-14.5); White Blood Cell Count 10.6 10^3/uL (4.8-10.8)
[2024-05-31 07:39] LABS: ALT (SGPT) 33 U/L (0-35); AST (SGOT) 51 U/L (14-36); Albumin 3.6 g/dl (3.5-5.0); Alkaline Phosphatase 113 U/L (38-126); Blood Urea Nitrogen 10 mg/dl (7-17); Calcium 8.8 mg/dl (8.4-10.2); Carbon Dioxide 33 mmol/L (22-30); Chloride 101 mmol/L (98-107); Estimated Creatinine Clearance 98 ml/min; Glucose 93 mg/dl (70-99); Potassium 3.9 mmol/L (3.5-5.1); Sodium 141 mmol/L (135-145); Total Bilirubin 0.9 mg/dl (0.2-1.3); Total Protein 6.3 g/dl (6.3-8.2); eGFR > 60.00
[2024-05-31 07:48] LABS: Troponin I 0.336 ng/ml
--- NOTE | 2024-05-31 09:06 | CON.CAR ---
Consultation
Consultation Request
Date/Time Consultation Requested: 05/30/2024
Date/Time Consultation Performed: 05/31/2024
Performing Provider: Dr. Hastings
Reason for Consultation: Nonischemic myocardial injury
Medical History
-
Chief Complaint: elevated troponin level
History of Present Illness:
This is a 73-year-old female who presents to ED due to possible accidental overdose on opiates. Patient was recently discharged 05/29/2024 from the hospital s/p L4/L5 spinal fusion for spondylolisthesis. She reports not aware of dosage for pain
medications as needed according to the pain level. She took Dilaudid 4 mg with tramadol 50 mg, gabapentin 300 mg prior to falling asleep. She reports difficulty getting out of bed upon awakening along with feeling dizzy she denies chest pain,
shortness of breath, palpitations. On presentation to ED, troponins elevated at 0.509. Evaluation with EKG normal sinus rhythm with RBBB. Evaluation with CT scan of chest with no evidence of pulmonary embolism.
Past Medical History
Past Medical History: Other (Carotid atherosclerosis without stenosis, RBBB, chronic back pain, GERD, lipidemia, hypothyroidism)
Past Surgical History: Other
Social History
Tobacco: Former Smoker
Family History
Family History: Reviewed & Not Pertinent
Allergies / Home Medications
Allergy/AdvReac Type Severity Reaction Status Date / Time
adhesive tape Allergy raised Verified 05/30/24 19:25
welts
lorazepam AdvReac Hallucinati Verified 05/30/24 19:25
on
�Medication �Instructions �Recorded �Confirmed �Type
Lactobacills gasseri-Bifidobac 1 cap PO DAILY Supplement 11/19/23 05/30/24 History
bifidum,longum 1.5 billion cell
capsule (Probiotic Colon Care)
atorvastatin 20 mg tablet 20 mg PO HS High Cholesterol 11/19/23 05/30/24 History
biotin 5,000 mcg chewable tablet 5,000 mcg PO DAILY Supplement 11/19/23 05/30/24 History
cetirizine 5 mg tablet 5 mg PO DAILY PRN seasonal allergy 11/19/23 05/30/24 History
imsgbinybhy-zdkhsrwdh-rkg C-Mn 500 3 cap PO DAILY Supplement 11/19/23 05/30/24 History
mg-400 mg capsule
levothyroxine 200 mcg tablet 200 mcg PO DAILY Thyroid 11/19/23 05/30/24 History
(Synthroid)
montelukast 10 mg tablet 10 mg PO HS Idiopathic angioedema 11/19/23 05/30/24 History
stfciubt-wpya-elct 8 mg-folic 400 1 tab PO DAILY Supplement 11/19/23 05/30/24 History
mcg-K 50 mcg-lutein 300 mcg tablet
(Centrum Silver Women)
omeprazole 20 mg tablet,delayed 20 mg PO HS GERD 11/19/23 05/30/24 History
release
psyllium husk 3.4 gram/5.4 gram 1 - 2 tbsp PO PRN PRN constipation 11/19/23 05/30/24 History
oral powder (Metamucil)
cyclobenzaprine 10 mg tablet 10 mg PO DAILYPRN PRN muscle 12/03/23 05/30/24 Rx
spasms #0 tabs
aspirin 81 mg tablet,delayed 81 mg PO DAILY Heart 05/21/24 05/30/24 History
release Disease/Condition
diphenhydramine HCl 25 mg tablet 50 mg PO PRN PRN Idiopathic 05/21/24 05/30/24 History
angioedema
gabapentin 300 mg capsule 300 mg PO HS NEUROPATHY 05/21/24 05/30/24 History
acetaminophen 325 mg capsule 650 mg (2 x 325 mg) PO QID #60 caps 05/28/24 05/30/24 Rx
cephalexin 500 mg capsule 500 mg PO QID infection 05/28/24 05/30/24 Rx
prevention #20 caps
dexamethasone 4 mg tablet 4 mg PO BID inflammation #6 tabs 05/28/24 05/30/24 Rx
docusate sodium 100 mg capsule 100 mg PO BID #0 caps 05/28/24 05/30/24 Rx
(Colace)
hydromorphone 2 mg tablet 2 mg PO Q4H PRN moderate-severe 05/28/24 05/30/24 Rx
pain #30 tabs
magnesium hydroxide 400 mg/5 mL 30 ml PO HS PRN Constipation #1 mL 05/28/24 05/30/24 Rx
oral suspension (Milk of Magnesia)
ondansetron 4 mg disintegrating 4 mg PO Q6H PRN n/v #20 tabs 05/28/24 05/30/24 Rx
tablet
tramadol 50 mg tablet 50 mg PO BID #0 tabs 05/28/24 05/30/24 Rx
cholecalciferol (vitamin D3) 50 50 mcg PO DAILY Supplement 05/30/24 05/30/24 History
mcg (2,000 unit) tablet
Saccharomyces boulardii 250 mg 250 mg PO BID Supplement 05/31/24 05/30/24 History
capsule (Florastor)
sennosides 8.6 mg tablet (senna) 17.2 mg PO BID Constipation 05/31/24 05/30/24 History
Review of Systems
-
All other systems: Negative unless noted
Physical Exam
Vital Signs
Temp Pulse Resp BP Pulse Ox
98.8 F 85 20 134/77 97
05/31/24 07:51 05/31/24 07:51 05/31/24 07:51 05/31/24 07:51 05/31/24 07:51
Lab Results
05/31/24 06:44
05/31/24 06:44
Troponin I 0.336 ng/ml H* 05/31/24 06:44
Physical Exam
General: No Apparent Distress
Respiratory: Clear
Cardiac: S1/S2 and Regular Rhythm; Negative Murmur
Musculoskeletal: No Edema
Psych: Calm
Impression / Plan
-
Impression/plan
-Troponin Elevation of Unclear Etiology.
Troponin 0.509 on presentation, now 0.336 trending down
Continue to trend troponin
EKG on presentation normal sinus rhythm
Echo 04/20/23 with ejection fraction 60-65%, Mild aortic stenosis
Update Echocardiogram, Ordered.
At bedside today denies chest pain, denies shortness of breath, denies palpitation
Continue atorvastatin
[2024-05-31] MEDS: COLACE 100 MG PO ×2 (09:08→22:10)
[2024-05-31] MEDS: TYLENOL 650 MG PO ×4 (09:08→22:11)
[2024-05-31] MEDS: DECADRON 4 MG PO ×2 (09:08→22:10)
[2024-05-31] MEDS: VISBIOME 1 CAP PO (09:08)
[2024-05-31] MEDS: KEFLEX 500 MG PO ×4 (09:08→22:10)
[2024-05-31] MEDS: VITAMIN D3 (cholecalciferol) 50 MCG PO (09:09)
--- NOTE | 2024-05-31 11:46 | W.PN.UPDATE ---
Update Note
Progress Note Update
Patient seen and examined. Seen and reviewed with PGY 2 FP. 73-year-old woman. Primary product management internship is Dr. Stephen cartagena. Patient has a previous history of hypercholesterolemia and right bundle branch block. No known history of coronary artery
disease. Patient underwent back surgery by Dr. Coombs and was subsequently discharged. She came in with weakness and confusion suspected to be related to overmedication with pain meds. It sounds as if patient had some confusion regarding medication
instructions. Patient now feels significantly better. She has had no complaints of chest discomfort at home or during her hospitalization. Patient happened to have a troponin checked in the emergency department which was 0.5 and has since been
trending down.. No symptoms to suggest angina and no ischemic ECG change.
-Etiology of troponin unclear. Since the highest troponin was 0.5 a previous event and trend down of troponin cannot be excluded.
-Medical therapy options have been limited. Patient was on aspirin prior to surgery but she supposed to hold it at least a week postoperatively. Patient is just recovering from spine surgery.
-Would plan for echo
-Resume aspirin 81 mg a day when safe from a postoperative standpoint
-Continue statin
-Pain control.
-If echo unremarkable then would plan for noninvasive evaluation for coronary artery disease /Lexiscan study. Patient's back issues currently would limit her evaluation she will likely need some additional recovery prior to proceeding with
additional testing.
--- NOTE | 2024-05-31 15:31 | W.PN.HOSP.TC ---
Today's Communication/Plan
-
PT evaluation
UDS
pain meds adjusted
Assessment / Plan
Assessment / Plan
1. Acute toxic encephalopathy -improved
Secondary to polypharmacy
-Patient is status post L4-L5 fusion on 05/[address] Coombs
-Patient ended up taking her Dilaudid/Flexeril/tramadol/gabapentin altogether and slept for more than 24 hrs. Patient was having some dizziness/confusion after waking up
-All sedating medication held yesterday and patient mentation much better
-Urine drug screen pending to rule out any other substance use, clinically less likely,
-Starting patient back on tramadol 50 mg every 6 hours for moderate and Dilaudid 1 mg every 6 hours for severe pain
-Patient to be evaluated by physical therapy
2. s/p L4-L5 fusion
-Patient have a history of L4-L5 laminectomy in the past, developed instability causing spondylolisthesis
-Patient underwent elective L4-L5 fusion by Dr. Coombs on 05/28/2024
-No surgical site complication on exam today
-Dexamethasone was provided for 3 days.
-Maintained on 5 days of postop Keflex as prescribed by spinal surg team, last day tomorrow.
3. Troponin elevation
-Suspected nonischemic cardiomyopathy
-Cardiology involved in care patient will get an elective echocardiogram
-EKG reviewed
4. Lower extremity neuropathy
-Patient has been following with neurology for lower extremity neuropathy
-Suspicion of this being related to radiculopathy due to lumbar spinal issues
-Patient was on gabapentin at home, resumed back on 300mg/hs
Hyperlipidemia
GERD
Hypothyroidism
Former smoker
Morbid obesity
DVT PPX - lovenox
Full code
Total time spent : 55 mins
I personally saw and examined the patient.
I have reviewed all diagnostic interpretations and treatment plans as written.
Time includes patient management by me, time spent at the patients bedside, time to review lab and imaging results, discussing patient care, documentation in the medical record, and time spent with the family or caregiver and discussing care plan
with RN/Consultants.
Anticipated Discharge: 24 - 48 hours
Subjective/Interval History
-
Date of Service: May 31, 2024
sitting comfortably in chair
on oxygen through [place], on 2L
having pain at lower back/surgical site
Objective Data
-
Labs:
Laboratory Results
05/31/24
06:44
WBC 10.6
Hgb 10.7 L
Hct 32.6 L
Plt Count 246
Sodium 141
Potassium 3.9
Chloride 101
Carbon Dioxide 33 H
BUN 10
Creatinine 0.6
Glucose 93
Calcium 8.8
Total Bilirubin 0.9
AST 51 H
ALT 33
Alkaline Phosphatase 113
Vital Signs:
Vital Signs
Temp Pulse Resp BP Pulse Ox
98.6 F 85 16 133/72 99
05/31/24 11:33 05/31/24 11:33 05/31/24 11:33 05/31/24 11:33 05/31/24 11:33
I&O
05/30/24 05/31/24 06/01/24
06:59 06:59 06:59
Intake Total 240 / 240
Balance 240 / 240
Review of Systems
-
Respiratory: Reports No Symptoms
Cardiac: Reports No Symptoms
Abdomen/GI: Reports No Symptoms
Physical Exam
-
General: Comfortable and Morbidly Obese
HEENT: Oxygen
Respiratory: Clear to Auscultation
Cardiac: Regular Rhythm and S1/S2; Negative Murmur or Rub
GI: Soft, Nontender, Nondistended and Other (Lower back midline surigcal dressing in place )
Musculoskeletal: No Edema
Neuro: Awake, Alert, Oriented, No Motor Deficits and Nonfocal/Grossly Intact
Psych: Calm
[2024-05-31] MEDS: DILAUDID 1 MG PO (16:16)
[2024-05-31 17:38] LABS: Amphetamines Negative (Negative); Barbiturates Negative (Negative); Benzodiazepines Negative (Negative); Buprenorphine Negative (Negative); Cocaine Negative (Negative); Marijuana Negative (Negative); Methadone Negative (Negative); Methamphetamines Negative (Negative); Opiates Negative (Negative); Phencyclidine Negative (Negative); Tricyclic Antidepressants Negative (Negative)
[2024-05-31] MEDS: PROTONIX 40 MG PO (22:10)
[2024-05-31] MEDS: SINGULAIR 10 MG PO (22:10)
[2024-05-31] MEDS: LIPITOR 20 MG PO (22:11)
[2024-06-01] VITALS (7 sets, daily range): BP systolic 130–158; BP diastolic 69–90; PULSE 87–90; O2SAT 94–95
[2024-06-01] MEDS: DILAUDID 1 MG PO ×3 (02:41→21:55)
[2024-06-01] MEDS: SYNTHROID 200 MCG PO (06:06)
[2024-06-01 07:38] LABS: ALT (SGPT) 38 U/L (0-35); AST (SGOT) 45 U/L (14-36); Albumin 3.7 g/dl (3.5-5.0); Alkaline Phosphatase 116 U/L (38-126); Blood Urea Nitrogen 11 mg/dl (7-17); Calcium 9.1 mg/dl (8.4-10.2); Carbon Dioxide 34 mmol/L (22-30); Chloride 102 mmol/L (98-107); Estimated Creatinine Clearance 98 ml/min; Glucose 95 mg/dl (70-99); Potassium 3.8 mmol/L (3.5-5.1); Sodium 143 mmol/L (135-145); Total Bilirubin 0.7 mg/dl (0.2-1.3); Total Protein 6.6 g/dl (6.3-8.2); eGFR > 60.00
[2024-06-01 08:23] LABS: % Basophils 0.5 % (0-2); % Eosinophils 1.1 % (0-6); % Immature Granulocytes 0.3 % (0-0.5); % Lymphocytes 18.4 % (20.5-51.1); % Monocytes 10.4 % (1.7-9.3); % Neutrophils 69.3 % (42.2-75.2); Absolute Basophils 0.1 10^3/uL (0-0.2); Absolute Eosinophils 0.1 10^3/uL (0-0.7); Absolute Lymphocytes 1.9 10^3/uL (1.2-3.4); Hematocrit 33.5 % (37.0-47.0); Hemoglobin 11.1 g/dL (12.0-16.0); Mean Corp Hgb Conc. 33.1 g/dL (33.0-37.0); Mean Corpuscular Hgb 31.2 pg (27.0-31.0); Mean Corpuscular Volume 94.1 fL (81.0-99.0); Mean Platelet Volume 9.1 fL (7.4-10.4); Nucleated Red Blood Cells % 0 %; Platelet Count 311 10^3/uL (130-400); Red Blood Cell Count 3.56 10^6/uL (4.20-5.40); Red Cell Dist. Width 12.7 % (11.5-14.5)
--- NOTE | 2024-06-01 08:52 | W.PN.HOSP.TC ---
Today's Communication/Plan
-
adjust pain meds
provide dose of laxative
rehab placement
Assessment / Plan
Assessment / Plan
1. Acute toxic encephalopathy -improved
Secondary to polypharmacy
-Patient is status post L4-L5 fusion on 05/[address] Coombs
-Patient ended up taking her Dilaudid/Flexeril/tramadol/gabapentin altogether and slept for more than 24 hrs. Patient was having some dizziness/confusion after waking up
-All sedating medication held yesterday and patient mentation much better
-Urine drug screen neg, including opiates?
-Starting patient back on tramadol 50 mg every 6 hours for moderate pain. For sev pain Dilaudid 1mg > increased freq to every 4hrs
-PT recommended acute rehab placement.
2. s/p L4-L5 fusion
-Patient have a history of L4-L5 laminectomy in the past, developed instability causing spondylolisthesis
-Patient underwent elective L4-L5 fusion by Dr. Coombs on 05/28/2024
-No surgical site complication on exam
-Dexamethasone was provided for 3 days. Last dose is today in evening.
-Maintained on 5 days of postop Keflex as prescribed by spinal surg team, last day today in evening.
3. Troponin elevation
-Suspected nonischemic cardiomyopathy
-Echo showed preserved EF, no major valvulopathy
-EKG reviewed - have RBBB
4. Lower extremity neuropathy
-Patient has been following with neurology for lower extremity neuropathy
-Suspicion of this being related to radiculopathy due to lumbar spinal issues
-Patient was on gabapentin at home, resumed back on 300mg/hs
5. Acute transaminitis
-close to upper normal
-hold atorvastatin for now.
6. Narcotic induced constipation
-last BM on , provide dose of docu/senna and miralax
Hyperlipidemia
GERD
Hypothyroidism
Former smoker
Morbid obesity
DVT PPX - lovenox
Full code
Anticipated Discharge: 24 - 48 hours
Subjective/Interval History
-
Date of Service: June 01, 2024
complaining of having pain in lower back last night
no BM from
Objective Data
-
Labs:
Laboratory Results
06/01/24
06:28
WBC 10.0
Hgb 11.1 L
Hct 33.5 L
Plt Count 311 D
Sodium 143
Potassium 3.8
Chloride 102
Carbon Dioxide 34 H
BUN 11
Creatinine 0.6
Glucose 95
Calcium 9.1
Total Bilirubin 0.7
AST 45 H
ALT 38 H
Alkaline Phosphatase 116
Vital Signs:
Vital Signs
Temp Pulse Resp BP Pulse Ox
98.1 F 87 20 158/90 95
06/01/24 07:04 06/01/24 07:04 06/01/24 07:04 06/01/24 07:04 06/01/24 07:04
I&O
05/31/24 06/01/24 06/02/24
06:59 06:59 06:59
Intake Total 240 / 240 1929 / 193
Output Total 400 / 400
Balance 240 / 240 1530 / 1530
Review of Systems
-
Respiratory: Reports No Symptoms
Cardiac: Reports No Symptoms
Abdomen/GI: Reports No Symptoms
Physical Exam
-
General: Comfortable and Morbidly Obese
HEENT: Oxygen
Respiratory: Clear to Auscultation
Cardiac: Regular Rhythm and S1/S2; Negative Murmur or Rub
GI: Soft, Nontender, Nondistended and Other (Lower back midline surigcal dressing in place )
Musculoskeletal: No Edema
Neuro: Awake, Alert, Oriented, No Motor Deficits and Nonfocal/Grossly Intact
Psych: Calm
[2024-06-01] MEDS: COLACE 100 MG PO ×2 (08:59→20:53)
[2024-06-01] MEDS: KEFLEX 500 MG PO ×4 (08:59→20:53)
[2024-06-01] MEDS: ULTRAM 50 MG PO ×2 (08:59→15:54)
[2024-06-01] MEDS: VITAMIN D3 (cholecalciferol) 50 MCG PO (08:59)
[2024-06-01] MEDS: VISBIOME 1 CAP PO (09:00)
[2024-06-01] MEDS: DECADRON 4 MG PO ×2 (09:01→20:51)
[2024-06-01] MEDS: TYLENOL PO (09:07)
[2024-06-01] MEDS: MIRALAX 17 GRAMS PO (09:08)
[2024-06-01] MEDS: TYLENOL 1000 MG PO ×3 (09:08→20:53)
--- NOTE | 2024-06-01 11:44 | CM ---
CM following re: discharge planning.
Reviewed pt's chart, met with pt.
Pt is a 73 year old female, admitted with primary dx of Acute toxic encephalopathy, Secondary to polypharmacy
-Patient is status post L4-L5 fusion on 05/28
Pt reports she lives alone in a 2SH, 2 steps to enter, has 2 brothers and a sister and [place]. Pt's is aware her OBS status has been upgraded to inpatient admission. IMM reviewed, placed on chart, pt has a copy
PT and OT evaluations noted - Acute level of rehab recommended. pt is aware, expressed her agreement and pt is requested [facility].
A referral to [facility] made. PM&R consult requested. Per PT, acute rehab is strongly recommended.
D/C plan: [facility].
CM will follow with discharge plan updates as hospitalization progresses
--- NOTE | 2024-06-01 12:48 | W.PN.CD ---
Today's Communication / Plan
-
Troponin Elevation of Unclear Etiology. Patient without symptoms to suggest angina. ECG without ischemic changes echocardiogram with normal left ventricular function and wall motion abnormalities and chest CT was negative for PE. Patient has been
stable on telemetry. Exact etiology unclear. Suspect non-[place] troponin.
-Patient with no known history of coronary disease. She was on aspirin 81 mg a day preop. Would resume aspirin 81 mg a day when it is safe from a post operative standpoint/post spine surgery standpoint
-Lexiscan nuclear perfusion stress test after additional recovery from spine surgery.
Impression / Plan
-
Impression/plan
Troponin Elevation of Unclear Etiology. Patient without symptoms to suggest angina. ECG without ischemic changes echocardiogram with normal left ventricular function and wall motion abnormalities and chest CT was negative for PE. Patient has been
stable on telemetry. Exact etiology unclear. Suspect non-[place] troponin. Possible that IntraOp hypotension could have been a contributing factor. I reviewed anesthesia records from 05/28/2024 blood pressure graph does show transient hypotension and
there was administration of phenylephrine on 2 occasions.
-Patient with no known history of coronary disease. She was on aspirin 81 mg a day preop. Would resume aspirin 81 mg a day when it is safe from a post operative standpoint/post spine surgery standpoint
-Lexiscan nuclear perfusion stress test after additional recovery from spine surgery.
Postop spine surgery. Patient still having issues with back pain. Due to concern about overmedication on presentation it sounds as if her pain control meds are still being sorted out. Defer to primary team
-Also defer to Ortho/spine/Dr. Coombs regarding postop management
Physical Exam
Vital Signs/Labs
Vital Signs
Temp Pulse Resp BP Pulse Ox
98.1 F 87 20 158/90 95
06/01/24 07:04 06/01/24 07:04 06/01/24 07:04 06/01/24 07:04 06/01/24 07:04
05/31/24 06/01/24 06/02/24
06:59 06:59 06:59
Actual Weight 106.849 kg
06/01/24 06:28
06/01/24 06:28
LAB Results
05/30/24 05/30/24 05/31/24
19:55 21:20 06:00
Troponin I Cancelled 0.509 H* Cancelled
05/31/24
06:44
Troponin I 0.336 H*
Physical Exam
Constitutional: No acute distress
Cardiovascular: Rhythm & rate is regular
Respiratory: Respiratory effort normal
Data Reviewed
-
Date of Service: June 01, 2024
Medical Decision Making: Reviewed Test Results
Medical Tests (PFT, Pathology etc): Report Reviewed by me
Labs: Labs Reviewed by me
Old Records: Reviewed (Reviewed anesthesia records)
[2024-06-01] MEDS: PROTONIX 40 MG PO (20:52)
[2024-06-01] MEDS: NEURONTIN 300 MG PO (20:52)
[2024-06-01] MEDS: SINGULAIR 10 MG PO (20:53)
[2024-06-02] VITALS (7 sets, daily range): BP systolic 139–170; BP diastolic 72–90; PULSE 77; O2SAT 98
[2024-06-02] MEDS: ULTRAM 50 MG PO ×3 (06:05→22:27)
[2024-06-02] MEDS: SYNTHROID 200 MCG PO (06:06)
[2024-06-02 08:52] LABS: Blood Urea Nitrogen 15 mg/dl (7-17); Calcium 9.2 mg/dl (8.4-10.2); Carbon Dioxide 28 mmol/L (22-30); Chloride 104 mmol/L (98-107); Estimated Creatinine Clearance 98 ml/min; Glucose 122 mg/dl (70-99); Potassium 4.3 mmol/L (3.5-5.1); Sodium 143 mmol/L (135-145); eGFR > 60.00
[2024-06-02] MEDS: VITAMIN D3 (cholecalciferol) 50 MCG PO (09:17)
[2024-06-02] MEDS: LOW STRENGTH ASPIRIN 81 MG PO (09:17)
[2024-06-02] MEDS: KEFLEX 500 MG PO ×4 (09:17→21:20)
[2024-06-02] MEDS: VISBIOME 1 CAP PO (09:17)
[2024-06-02] MEDS: COLACE 100 MG PO ×2 (09:18→21:20)
[2024-06-02] MEDS: TYLENOL 1000 MG PO ×3 (09:18→21:20)
[2024-06-02] MEDS: MIRALAX 17 GRAMS PO (09:18)
[2024-06-02] MEDS: DULCOLAX 10 MG PO (12:13)
--- NOTE | 2024-06-02 13:23 | W.PN.UPDATE ---
Update Note
Progress Note Update
I saw and evaluated the patient. I reviewed the resident�s note and agree with findings and plan as documented in the resident�s note.
Resting comfortably. Patient hesitant to take Dilaudid.
No BM with oral laxatives.
1. Acute toxic encephalopathy -improved
Secondary to polypharmacy
-Patient is status post L4-L5 fusion on 05/[address] Coombs
-Patient ended up taking her Dilaudid/Flexeril/tramadol/gabapentin altogether and slept for more than 24 hrs. Patient was having some dizziness/confusion after waking up
-All sedating medication held yesterday and patient mentation much better
-Urine drug screen neg, including opiates?
-Patient pain is improved and hesitant to take Dilaudid moving on. Pain medication adjusted to tramadol 25 mg for moderate and 50 mg for severe pain.
-PT recommended acute rehab placement.
2. s/p L4-L5 fusion
-Patient have a history of L4-L5 laminectomy in the past, developed instability causing spondylolisthesis
-Patient underwent elective L4-L5 fusion by Dr. Coombs on 05/28/2024
-No surgical site complication on exam
-Dexamethasone was provided for 3 days.. finished course.
-Maintained on 5 days of postop Keflex as prescribed by spinal surg team, finished course.
3. Troponin elevation
-Suspected nonischemic cardiomyopathy
-Echo showed preserved EF, no major valvulopathy
-EKG reviewed - have RBBB
-Cardio discussed with neurosurgery and patient to be started on baby aspirin
-Patient will be followed up in office for outpatient ischemic evaluation.
4. Lower extremity neuropathy
-Patient has been following with neurology for lower extremity neuropathy
-Suspicion of this being related to radiculopathy due to lumbar spinal issues
-Patient was on gabapentin at home, resumed back on 300mg/hs
5. Acute transaminitis
-close to upper normal
-hold atorvastatin for now.
6. Narcotic induced constipation
-last BM on , provide dose of docu/senna and miralax
Hyperlipidemia
GERD
Hypothyroidism
Former smoker
Morbid obesity
DVT PPX - lovenox
Full code
--- NOTE | 2024-06-02 14:39 | W.PN.HOSP.TC ---
Today's Communication/Plan
-
Placement to acute inpatient rehab.
Assessment / Plan
Assessment / Plan
Impression/plan
#Acute toxic encephalopathy
improved, likely secondary to polypharmacy
-Patient is status post L4-L5 fusion on 05/[address] Coombs
-Patient ended up taking her Dilaudid/Flexeril/tramadol/gabapentin altogether and slept for more than 24 hrs. Patient was having some dizziness/confusion after waking up
-All sedating medication held and patient mentation much better
-Urine drug screen neg, including opiates
Pain medication adjusted to tramadol 25 mg for moderate and 50 mg for severe pain
-PT recommended acute rehab placement.
#S/p L4-L5 fusion
-Patient have a history of L4-L5 laminectomy in the past, developed instability causing spondylolisthesis
-Patient underwent elective L4-L5 fusion by Dr. Coombs on 05/28/2024
-No surgical site complication on exam
-Dexamethasone was provided for 3 days. Last dose yesterday
-Maintained on 5 days of postop Keflex as prescribed by spinal surg team, last dose yesterday
#Troponin elevation
-Suspected nonischemic cardiomyopathy
-Echo showed preserved EF, no major valvulopathy
-EKG reviewed - have RBBB
Cardiology consulted�recommended Lexiscan nuclear perfusion stress test as outpatient.
#Lower extremity neuropathy
-Patient has been following with neurology for lower extremity neuropathy
-Suspicion of this being related to radiculopathy due to lumbar spinal issues
-Patient was on gabapentin at home, resumed back on 300mg/hs
#Acute transaminitis
-close to upper normal
-hold atorvastatin for now.
#Narcotic induced constipation
-last BM on , provide dose of docu/senna and miralax
#Hyperlipidemia
Atorvastatin on hold
#GERD
continue pantoprazole
#Hypothyroidism
continue levothyroxine
Disposition: PT recommended short-term inpatient rehab.
DVT PPX - lovenox
Full code
Anticipated Discharge: Within 24 hours
Subjective/Interval History
-
Date of Service: June 02, 2024
Patient is awake, coherent and is having her breakfast. Patient reports her pain is well-controlled with tramadol and Dilaudid. Patient reports she does not require Dilaudid today. Patient reports having tingling, needlelike sensations and
numbness in the lower extremities.
Objective Data
-
Labs:
Laboratory Results
06/02/24
07:39
Sodium 143
Potassium 4.3
Chloride 104
Carbon Dioxide 28
BUN 15
Creatinine 0.6
Glucose 122 H
Calcium 9.2
Vital Signs:
Vital Signs
Temp Pulse Resp BP Pulse Ox
98.1 F 82 18 161/77 96
06/02/24 11:20 06/02/24 11:20 06/02/24 11:20 06/02/24 11:20 06/02/24 11:20
I&O
06/01/24 06/02/24 06/03/24
06:59 06:59 06:59
Intake Total 1930 / 1930 2640 / 2640
Output Total 400 / 400 2099 / 2100
Balance 1530 / 1530 540 / 540
Review of Systems
-
All other systems: Reviewed and negative (As per the history)
Physical Exam
-
General: Well Developed, Well Nourished, No Apparent Distress and Comfortable
HEENT: Normocephalic and Atraumatic
Respiratory: Clear to Auscultation
Cardiac: Regular Rhythm, S1/S2 and Murmur (Systolic)
GI: Soft, Nontender, Nondistended and Normal Bowel Sounds
Skin: Warm, Dry and Other (Lower back surgical site wound-intact with dressing, healing well, no surrounding tenderness, erythema, no purulent drainage.)
Neuro: Awake, Alert, Oriented and AO x 3
Psych: Calm
[2024-06-02] MEDS: SINGULAIR 10 MG PO (21:20)
[2024-06-02] MEDS: PROTONIX 40 MG PO (21:20)
[2024-06-02] MEDS: NEURONTIN 300 MG PO (21:20)
[2024-06-03 03:32] VITALS: BP 139/76
[2024-06-03] MEDS: SYNTHROID 200 MCG PO (06:05)
[2024-06-03 07:58] LABS: Blood Urea Nitrogen 13 mg/dl (7-17); Calcium 9.4 mg/dl (8.4-10.2); Carbon Dioxide 33 mmol/L (22-30); Chloride 103 mmol/L (98-107); Estimated Creatinine Clearance 84 ml/min; Glucose 90 mg/dl (70-99); Potassium 4.1 mmol/L (3.5-5.1); Sodium 145 mmol/L (135-145); eGFR > 60.00
[2024-06-03 08:34] VITALS: BP 158/83
[2024-06-03 08:36] LABS: Hematocrit 37.5 % (37.0-47.0); Hemoglobin 12.6 g/dL (12.0-16.0); Mean Corp Hgb Conc. 33.6 g/dL (33.0-37.0); Mean Corpuscular Hgb 31.4 pg (27.0-31.0); Mean Corpuscular Volume 93.5 fL (81.0-99.0); Mean Platelet Volume 8.5 fL (7.4-10.4); Platelet Count 376 10^3/uL (130-400); Red Blood Cell Count 4.01 10^6/uL (4.20-5.40); Red Cell Dist. Width 12.8 % (11.5-14.5); White Blood Cell Count 8.3 10^3/uL (4.8-10.8)
--- NOTE | 2024-06-03 09:03 | W.PN.HOSP.TC ---
Today's Communication/Plan
-
Adjust pain regiment
Continue bowel regiment, monitor for bowel movement
Continue conversation with case management and PT regarding disposition
Assessment / Plan
Assessment / Plan
Impression/plan
#Acute toxic encephalopathy
-Improved, likely secondary to polypharmacy
-Patient is status post L4-L5 fusion on 05/[address] Coombs
-Patient ended up taking her Dilaudid/Flexeril/tramadol/gabapentin altogether and slept for more than 24 hrs. Patient was having some dizziness/confusion after waking up
-All sedating medication held and patient mentation much better
-Urine drug screen neg, including opiates
-Pain medication adjusted to tramadol 25 mg for moderate and 50 mg for severe pain
-Patient reports pain is still uncontrolled on current regiment.
-Hydrocodone/acetaminophen 5�325 Q4 was added to her regiment
-Acetaminophen adjusted to 650 every 6 hours
-PT recommended acute rehab placement.
#S/p L4-L5 fusion
-Patient have a history of L4-L5 laminectomy in the past, developed instability causing spondylolisthesis
-Patient underwent elective L4-L5 fusion by Dr. Coombs on 05/28/2024
-No surgical site complication on exam
-Status post 3 days dexamethasone.
-Status post 5 days Keflex, prescribed by surgical team
-Ice packs to the lower back were ordered
-Patient reports that she would like to shower, and have her wound dressing changed
-Will check with surgical team if this is appropriate
#Constipation
-Patient reports last bowel movement was 1 week ago
-Etiology likely multifactorial, patient on chronic opioids, recent surgery, as well as not eating much
-Patient has been trialed on oral laxative medications for the past few days, will order enema
#Troponin elevation
-Resolved
-Suspected nonischemic cardiomyopathy
-Echo showed preserved EF, no major valvulopathy
-EKG reviewed - have RBBB
-Cardiology consulted�recommended Lexiscan nuclear perfusion stress test as outpatient.
#Lower extremity neuropathy
-Patient has been following with neurology for lower extremity neuropathy
-Suspicion of this being related to radiculopathy due to lumbar spinal issues
-Patient was on gabapentin at home, resumed back on 300mg/hs
#Acute transaminitis
-close to upper normal
-hold atorvastatin for now.
#Hyperlipidemia
Atorvastatin on hold
#GERD
continue pantoprazole
#Hypothyroidism
continue levothyroxine
Disposition: PT recommended short-term inpatient rehab.
DVT PPX - lovenox
Diet: Regular
Full code
Anticipated Discharge: Within 24 hours
Subjective/Interval History
-
Date of Service: June 03, 2024
Patient still reports pain
Patient reports difficulty sleeping due to pain, currently uncontrolled on pain regimen
Patient has not had a bowel movement in 1 week
Objective Data
-
Labs:
Laboratory Results
06/03/24
07:10
WBC 8.3
Hgb 12.6
Hct 37.5
Plt Count 376 D
Sodium 145
Potassium 4.1
Chloride 103
Carbon Dioxide 33 H
BUN 13
Creatinine 0.7
Glucose 90
Calcium 9.4
Vital Signs:
Vital Signs
Temp Pulse Resp BP Pulse Ox
97.6 F 76 15 158/83 95
06/03/24 08:34 06/03/24 08:34 06/03/24 08:34 06/03/24 08:34 06/03/24 08:34
I&O
06/02/24 06/03/24 06/04/24
06:59 06:59 06:59
Intake Total 2640 / 2640 1800 / 1800
Output Total 2099 / 2099 4300 / 4300 2099
Balance 540 / 540 -2500 / -2500 -2099 / -2099
Review of Systems
-
History Source: Patient
Constitutional: Reports No Symptoms
Respiratory: Reports No Symptoms
Cardiac: Reports No Symptoms
Abdomen/GI: Reports No Symptoms
Musculoskeletal: Reports Other (Patient reports back pain, currently unable to sleep)
Physical Exam
-
General: Well Developed, Well Nourished, Pain and Conversant
Respiratory: Clear to Auscultation
GI: Soft, Nontender, Nondistended and Normal Bowel Sounds
Data Reviewed
-
Labs: Labs Reviewed by me and Discussed with Physician
[2024-06-03] MEDS: TYLENOL 1000 MG PO (09:13)
[2024-06-03] MEDS: MIRALAX 17 GRAMS PO (09:13)
[2024-06-03] MEDS: ULTRAM 50 MG PO ×2 (09:13→15:54)
[2024-06-03] MEDS: VISBIOME 1 CAP PO (09:13)
[2024-06-03] MEDS: LOW STRENGTH ASPIRIN 81 MG PO (09:14)
[2024-06-03] MEDS: KEFLEX 500 MG PO ×4 (09:14→22:16)
[2024-06-03] MEDS: VITAMIN D3 (cholecalciferol) 50 MCG PO (09:14)
[2024-06-03] MEDS: COLACE 100 MG PO ×2 (09:14→20:32)
--- NOTE | 2024-06-03 12:05 | CM ---
Chart reviewed and per physical therapy the recommendation is for acute v's skilled rehab for patient, patient had recent lumbar fusion and was sent home and then readmitted. Per physical therapy notes patient is currently ambulating 60 feet with
MIN assist, case liner discussed with patient possible options for rehab, patient may not qualify for acute rehab, but would qualify for skilled rehab, patient feels better today and feels as though she maybe able to return to home, patient was
set up with [facility] last admission.
Plan; Await updated notes from PT/OT, case liner did reach out to [facility] to follow with patient.
[2024-06-03 12:24] VITALS: BP 155/89
--- NOTE | 2024-06-03 13:27 | W.PN.UPDATE ---
Update Note
Progress Note Update
I saw and evaluated the patient. I reviewed the resident�s note and agree with findings and plan as documented in the resident�s note.
Patient sitting comfortably in chair.
No bowel movement yesterday after getting oral laxatives. Denies abdominal pain/nausea/vomiting
Having pain at surgical site and requesting pain medications to be adjusted.
1. Acute toxic encephalopathy -improved
Secondary to polypharmacy
-Patient is status post L4-L5 fusion on 05/[address] Coombs
-Patient ended up taking her Dilaudid/Flexeril/tramadol/gabapentin altogether and slept for more than 24 hrs. Patient was having some dizziness/confusion after waking up
-All sedating medication held yesterday and patient mentation much better
-Urine drug screen neg, including opiates?
-Patient ambulation is improved. May not qualify for rehab placement. Discussed with patient and understands that patient may have to go home with home health care.
-Patient pain medication adjusted again today to tramadol 50 mg every 6 hours for moderate pain and [place] 5 mg every 4 hours for severe pain
2. s/p L4-L5 fusion
-Patient have a history of L4-L5 laminectomy in the past, developed instability causing spondylolisthesis
-Patient underwent elective L4-L5 fusion by Dr. Coombs on 05/28/2024
-No surgical site complication on exam
-Dexamethasone was provided for 3 days. finished course.
-Maintained on 5 days of postop Keflex as prescribed by spinal surg team, finished course.
-Requesting to take a shower and questioning if lumbar surgical site dressing can come off. Informed that I will discuss with Dr Coombs before clearing
3. Troponin elevation
-Suspected nonischemic cardiomyopathy
-Echo showed preserved EF, no major valvulopathy
-EKG reviewed - have RBBB
-Cardio discussed with neurosurgery and patient to be started on baby aspirin
-Patient will be followed up in office for outpatient ischemic evaluation.
4. Lower extremity neuropathy
-Patient has been following with neurology for lower extremity neuropathy
-Suspicion of this being related to radiculopathy due to lumbar spinal issues
-Patient was on gabapentin at home, resumed back on 300mg/hs
5. Acute transaminitis
-close to upper normal
-hold atorvastatin for now.
6. Narcotic induced constipation
-last BM on , provide dose of docu/senna and miralax
-Provide subset enema and oral lactulose until bowel movement-
-no clinical signs of bowel obstruction
Hyperlipidemia
GERD
Hypothyroidism
Former smoker
Morbid obesity
DVT PPX - lovenox
Full code
--- NOTE | 2024-06-03 13:51 | VNURNOTE ---
Home health liaison met with patient to discuss [facility] services, visit scheduling/frequency, homebound status and pet policy. Patient understands home visits will be 1-2 times a week to assess and teach medical management. Patient aware a visiting
nurse will contact her for start of care within 1-2 days after discharge from . [facility] Referral completed in care port.
--- NOTE | 2024-06-03 14:29 | W.PN.CD ---
Today's Communication / Plan
-
No additional suggestions
Cardiology will sign off
She will see her cardiologists after she recovers from back surgery and discuss consideration for stress test
Cardiology will sign off
Impression / Plan
-
Change in mental status from meds, resolved
Non [place] myocardial injury, peak trop 0.509
Mild-mod aortic stenosis
S/p Spine surgery
RBBB
mixed hyperlipidemia
Subjective: No CP or dyspnea
Physical Exam
Vital Signs/Labs
Vital Signs
Temp Pulse Resp BP Pulse Ox
97.6 F 89 16 155/89 97
06/03/24 12:24 06/03/24 12:24 06/03/24 12:24 06/03/24 12:24 06/03/24 12:24
06/03/24 07:10
06/03/24 07:10
Physical Exam
Constitutional: No acute distress
EENT: Anicteric
Cardiovascular: Rhythm & rate is regular and Pedal edema is absent
Respiratory: Respiratory effort normal and Lungs clear to auscul.
GI: Soft and Distention absent
Neuro/Psych: AO x 3
Data Reviewed
-
Date of Service: June 03, 2024
[2024-06-03] MEDS: TYLENOL 650 MG PO ×2 (15:54→22:15)
[2024-06-03 16:58] VITALS: BP 141/84
[2024-06-03] MEDS: NEURONTIN 300 MG PO (22:10)
[2024-06-03] MEDS: SINGULAIR 10 MG PO (22:15)
[2024-06-03] MEDS: NORCO 5/325 1 TABLET PO (22:16)
[2024-06-03] MEDS: PROTONIX 40 MG PO (22:18)
[2024-06-03 22:56] VITALS: BP 140/78
[2024-06-04] MEDS: NORCO 5/325 1 TABLET PO (03:09)
[2024-06-04] MEDS: SYNTHROID 200 MCG PO (06:00)
[2024-06-04] MEDS: ULTRAM 50 MG PO (06:03)
[2024-06-04 07:46] LABS: Hematocrit 37.3 % (37.0-47.0); Hemoglobin 12.5 g/dL (12.0-16.0); Mean Corp Hgb Conc. 33.5 g/dL (33.0-37.0); Mean Corpuscular Hgb 31.3 pg (27.0-31.0); Mean Corpuscular Volume 93.5 fL (81.0-99.0); Mean Platelet Volume 8.6 fL (7.4-10.4); Platelet Count 380 10^3/uL (130-400); Red Blood Cell Count 3.99 10^6/uL (4.20-5.40); Red Cell Dist. Width 13.1 % (11.5-14.5); White Blood Cell Count 7.3 10^3/uL (4.8-10.8)
[2024-06-04 07:50] VITALS: BP 157/86
[2024-06-04 08:38] LABS: Blood Urea Nitrogen 12 mg/dl (7-17); Calcium 9.3 mg/dl (8.4-10.2); Chloride 104 mmol/L (98-107); Estimated Creatinine Clearance 84 ml/min; Glucose 98 mg/dl (70-99); Potassium 4.3 mmol/L (3.5-5.1); Sodium 142 mmol/L (135-145); eGFR > 60.00
[2024-06-04] MEDS: MIRALAX 17 GRAMS PO (08:42)
[2024-06-04] MEDS: TYLENOL 650 MG PO (08:42)
[2024-06-04] MEDS: VITAMIN D3 (cholecalciferol) 50 MCG PO (08:42)
[2024-06-04] MEDS: VISBIOME 1 CAP PO (08:42)
[2024-06-04] MEDS: LOW STRENGTH ASPIRIN 81 MG PO (08:42)
[2024-06-04] MEDS: COLACE 100 MG PO (08:43)
[2024-06-04 09:00] LABS: Carbon Dioxide 28 mmol/L (22-30)
--- NOTE | 2024-06-04 09:01 | W.PN.HOSP.TC ---
Addendum entered and electronically signed by Niels rByson MD 06/04/24 14:50:
I saw and evaluated the patient. I reviewed the resident�s note and agree with findings and plan as documented in the resident�s note.
Acute toxic encephalopathy -resolved at this point. Will continue current pain medication regimen at discharge. Patient advised to slowly wean herself off of pain medication as continued to feel better
L4-L5 fusion -dressing has been removed. Patient finished cephalexin/dexamethasone course. Discussed with Dr. Coombs and patient to follow-up with Dr. Coombs in office
Narcotic-induced constipation -resolved with use of enema. Patient educated on use of MiraLAX/laxative
Hypertension -patient declined to be given blood pressure medication
Patient is cleared to be discharged home with home health care at this point.
More than 30 minutes spent in discharge including
Final examination of the patient
Summarizing hospital stay
Instructions for continuing care to all relevant caregivers
Preparation of discharge records, prescriptions, and referral forms
Total time spent (in minutes): 39 mins
Original Note:
Today's Communication/Plan
-
Consider discharge to longterm today
Continue working with physical therapy
Assessment / Plan
Assessment / Plan
Impression/plan
#Acute toxic encephalopathy
-Improved, likely secondary to polypharmacy
-Patient is status post L4-L5 fusion on 05/[address] Coombs
-Patient ended up taking her Dilaudid/Flexeril/tramadol/gabapentin altogether and slept for more than 24 hrs. Patient was having some dizziness/confusion after waking up
-All sedating medication held and patient mentation much better
-Urine drug screen neg, including opiates
-Pain medication adjusted to tramadol 25 mg for moderate and 50 mg for severe pain
-Patient reports pain is controlled well on current regiment.
-Hydrocodone/acetaminophen 5�325 Q4 was added to her regiment
-Acetaminophen adjusted to 650 every 6 hours
-PT recommended acute rehab placement.
#S/p L4-L5 fusion
-Patient have a history of L4-L5 laminectomy in the past, developed instability causing spondylolisthesis
-Patient underwent elective L4-L5 fusion by Dr. Coombs on 05/28/2024
-No surgical site complication on exam
-Status post 3 days dexamethasone.
-Status post 5 days Keflex, prescribed by surgical team
-Ice packs to the lower back were ordered
-Patient reports that she would like to shower, and have her wound dressing changed
-Will check with surgical team if this is appropriate
#Constipation
-Patient reports last bowel movement was 1 week ago
-Etiology likely multifactorial, patient on chronic opioids, recent surgery, as well as not eating much
-Patient had a bowel movement yesterday after soap enema
-Continue patient on oral laxatives for the time being and at discharge
#Troponin elevation
-Resolved
-Suspected nonischemic cardiomyopathy
-Echo showed preserved EF, no major valvulopathy
-EKG reviewed - have RBBB
-Cardiology consulted�recommended Lexiscan nuclear perfusion stress test as outpatient.
#Lower extremity neuropathy
-Patient has been following with neurology for lower extremity neuropathy
-Suspicion of this being related to radiculopathy due to lumbar spinal issues
-Patient was on gabapentin at home, resumed back on 300mg/hs
#Acute transaminitis
-close to upper normal
-hold atorvastatin for now.
#Hyperlipidemia
Atorvastatin on hold
#GERD
continue pantoprazole
#Hypothyroidism
continue levothyroxine
Disposition: PT recommended short-term inpatient rehab.
DVT PPX - lovenox
Diet: Regular
Full code
Anticipated Discharge: Today
Subjective/Interval History
-
Date of Service: June 04, 2024
Patient reports pain is well-controlled on current regimen
Patient is agreeable to be discharged if possible today
Objective Data
-
Labs:
Laboratory Results
06/04/24
06:55
WBC 7.3
Hgb 12.5
Hct 37.3
Plt Count 380
Sodium 142
Potassium 4.3
Chloride 104
Carbon Dioxide 28
BUN 12
Creatinine 0.7
Glucose 98
Calcium 9.3
Vital Signs:
Vital Signs
Temp Pulse Resp BP Pulse Ox
98.0 F 80 18 157/86 94
06/04/24 07:50 06/04/24 07:50 06/04/24 07:50 06/04/24 07:50 06/04/24 07:50
I&O
06/03/24 06/04/24 06/05/24
06:59 06:59 06:59
Intake Total 1800 / 1800
Output Total 4300 / 4300 2100 / 2100 1000 / 1000
Balance -2500 / -2500 -2100 / -2100 -1000 / -1000
Review of Systems
-
History Source: Patient
Constitutional: Reports No Symptoms
Respiratory: Reports No Symptoms
Cardiac: Reports No Symptoms
Abdomen/GI: Reports No Symptoms
Physical Exam
-
General: Well Developed, Well Nourished, No Apparent Distress and Conversant
Respiratory: Clear to Auscultation
Cardiac: Regular Rhythm and S1/S2
GI: Soft, Nontender, Nondistended and Normal Bowel Sounds
Skin: Warm and Dry
Neuro: Awake, Alert, Oriented and AO x 3
Psych: Calm and Intact Judgement/Insight
Data Reviewed
-
Labs: Labs Reviewed by me and Discussed with Physician
--- NOTE | 2024-06-04 10:34 | CM ---
media traffic manager met with patient this am and patient reports she is ready for discharge, plan is to home with [facility].
Plan; Home with [facility].
--- NOTE | 2024-06-04 11:19 | W.DCSUMMARY ---
Discharge Summary
Discharge Data
Date of Admission: 05/31/24
Date of Discharge: 06/04/24
-
Pending Results: No
Hospital Course
Discharging Physician : Braydon Alfred
Disposition : Home
Primary care physician : Dr. Brenner
Principal Discharge diagnosis : Polypharmacy causing acute toxic metabolic encephalopathy
Chronic Discharge diagnosis : L4-L5 fusion, constipation, troponin elevation, lower extremity neuropathy, acute transaminitis, hyperlipidemia, GERD, hypothyroidism
Hospital Course :
73-year-old female presents from home, she recently had back surgery L4-L5 spinal fusion on 05/28/2024. Patient reports taking her new pain medications and mixing them with her routine medication. Patient took 2 to 4 mg Dilaudid, tramadol 50,
Flexeril 10, gabapentin 300. Afterwards patient reported difficulty getting out of bed and feeling dizzy. Patient presented to us on Emergency Department after the symptoms. In the emergency department she was found to have troponin elevation at
0.509. Cardiology was consulted regarding her elevated troponin and she was evaluated with an EKG showing normal sinus rhythm with right bundle branch block and a CT scan which showed no evidence of pulmonary embolism. Cardiology also ordered
echocardiogram. Echocardiogram resulted in the same EF fraction as the previous echo, 60 to 65%. Patient was hesitant to take Dilaudid after her previous experience, patient was started on tramadol 25 for moderate and 50 for severe. Eventually
patient pain regiment was increased to 50 of tramadol every 6 hours as needed as well as Oden 5/325 and Tylenol 650 three times a day. Patient states her pain was well-controlled on this regimen and she was able to sleep. During her stay it was
noted that patient did not have a bowel movement for approximately 1 week, she trialed multiple oral laxatives, eventually she was given a soap enema which resulted in a bowel movement. Cardiology decided that the patient will follow-up with them
in office and consider a stress test after she has recovered from her back surgery. Patient will follow-up with her own roustabout crew pusher after discharge. Patient will follow-up with her primary care physician within 1 week of discharge. Patient will
follow-up with orthopedic surgery in 2 to 4 weeks after discharge. Patient was discharged home with visiting nurse and home PT/OT.
Important imaging findings :
05/30/2024 chest x-ray, impressions:
No active cardiopulmonary disease.
05/30/[address], impressions:
1. No evidence of pulmonary embolism or thoracic aortic dissection.
2. Mild bibasilar subsegmental atelectasis.
3. Mild centrilobular emphysema.
4. Moderate coronary arterial calcification. Mild calcification of the aortic and mitral valves. Please correlate with symptoms of and risk factors for coronary artery and cardiac valvular disease, with further workup as clinically appropriate.
Procedure findings :
05/31/2024 echocardiogram, conclusions:
Normal left ventricular chamber size.
Left ventricular ejection fraction is 60-65% .
Normal regional wall motion.
Mild to moderate aortic stenosis.
Estimated pulmonary artery pressure of 30-35 mmHg .
Discharge Plan
-
Patient Disposition: Home with Home Care
Discharge Diagnosis/Procedures: Polypharmacy causing toxic encephalopathy, narcotic induced constipation, recent L4-L5 fusion causing pain
Condition: Fair
Diet: Regular
Activity: As tolerated and With Walker
Driving Restrictions: No driving for 1 week
Bathing Restrictions: OK to Shower
Other Services: VN, PT and OT
Activity Restrictions/Additional Instructions:
Please follow up with orthopedics, Dr Coombs in 2-4 weeks
Please follow up with your roustabout crew pusher for a stress test after discharge
Please follow up with your pcp within one week of discharge
Referrals:
Jon Coombs MD [Active] - in two to four weeks
Fransico Hastings MD [Active] - in two to four weeks
Nadia Brenner MD [Family Provider] - in one week
Additional Discharge Medication Instructions: Please take tylenol 650 3 times a day as needed for pain
Please take Hydrocodone-acetaminophen every 4 hours as needed for pain
Please take miralax daily for constipation
Prescriptions:
New
acetaminophen 325 mg Tablet
650 mg PO TID Qty: 30 0RF
polyethylene glycol 3350 [HealthyLax] 17 gram Powder In Packet
17 g PO DAILY Qty: 30 0RF
hydrocodone-acetaminophen 5-325 mg Tablet
1 tab PO Q4HPRN PRN (Reason: Sev pain) Qty: 15 0RF
Continued
atorvastatin 20 mg Tablet
20 mg PO HS
levothyroxine [Synthroid] 200 mcg Tablet
200 mcg PO DAILY
dutvgqwytlz-gwphamzht-tdi C-Mn 500-400 mg Capsule
3 cap PO DAILY
omeprazole 20 mg Tablet,Delayed Release (Dr/Ec)
20 mg PO HS
Centrum Silver Women 8 mg iron-400 mcg-50 mcg Tablet
1 tab PO DAILY
biotin 5,000 mcg Tablet,Chewable
5,000 mcg PO DAILY
cetirizine 5 mg Tablet
5 mg PO DAILY PRN (Reason: seasonal allergy)
montelukast 10 mg Tablet
10 mg PO HS
Probiotic Colon Care 1.5 billion cell Capsule
1 cap PO DAILY
Metamucil 3.4 gram/5.4 gram Powder
1 - 2 tbsp PO PRN PRN (Reason: constipation)
cyclobenzaprine 10 mg Tablet
10 mg PO DAILYPRN PRN (Reason: muscle spasms) Qty: 0 0RF
Rx Instructions:
Caution with [place] - can cause drowsiness.
Take only as needed/as directed.
aspirin 81 mg Tablet,Delayed Release (Dr/Ec)
81 mg PO DAILY
gabapentin 300 mg Capsule
300 mg PO HS
magnesium hydroxide [Milk of Magnesia] 400 mg/5 mL suspension
30 ml PO HS PRN (Reason: Constipation) Qty: 1 0RF
docusate sodium [Colace] 100 mg capsule
100 mg PO BID Qty: 0 0RF
cholecalciferol (vitamin D3) 50 mcg (2,000 unit) Tablet
50 mcg PO DAILY
Saccharomyces boulardii [Florastor] 250 mg capsule
250 mg PO BID
Changed
tramadol 50 mg Tablet
50 mg PO Q6H PRN (Reason: Mod pain) Qty: 0 0RF
Discontinued
diphenhydramine HCl 25 mg Tablet
50 mg PO PRN PRN (Reason: Idiopathic angioedema)
hydromorphone 2 mg tablet
2 mg PO Q4H PRN (Reason: moderate-severe pain) Qty: 30 0RF
Rx Instructions:
Dx orthopedic surgery
Ongoing therapy
cephalexin 500 mg capsule
500 mg PO QID Qty: 20 0RF
dexamethasone 4 mg tablet
4 mg PO BID Qty: 6 0RF
Rx Instructions:
take with food
post-op use only
ondansetron 4 mg tablet,disintegrating
4 mg PO Q6H PRN (Reason: n/v) Qty: 20 0RF
Rx Instructions:
take 1/2h b/f pain med if recurrent nausea
allow to dissolve in mouth w/o water
acetaminophen 325 mg capsule
650 mg PO QID Qty: 60 0RF
sennosides [senna] 8.6 mg tablet
17.2 mg PO BID
Discharge Orders:
Discharge Patient (As Directed); Ordered 06/04/24
Ordered By: Niels Bryson
Discharge Date and Time
Discharge Date/Time: 06/04/24 14:16
Print Language: KINYARWANDA
[2024-06-04 11:20] VITALS: BP 118/73; BP 153/81; PULSE 93; O2SAT 96
== END 2024-06-04 14:16 | disposition home health service (06) | DRG 917 ==
LOC: 4 WEST ACU 15:34
PROVIDERS: Clinical Nurse Specialist Family Health; Student in an Organized Health Care Education/Training Program; ADMITTING PHYSICIAN Internal Medicine; ATTENDING PHYSICIAN Hospitalist; CONSULT PHYSICIAN Internal Medicine Cardiovascular Disease; EMERGENCY PHYSICIAN Emergency Medicine; FAMILY PHYSICIAN Family Medicine
DX: T40.421A Poisoning by tramadol, accidental (unintentional), initial encounter (principal); G92.8 Other toxic encephalopathy; I5A Non-ischemic myocardial injury (non-traumatic); Z68.41 Body mass index [BMI] 40.0-44.9, adult; I42.8 Other cardiomyopathies; E03.9 Hypothyroidism, unspecified; E66.09 Other obesity due to excess calories; T48.1X1A Poisoning by skeletal muscle relaxants [neuromuscular blocking agents], accidental (unintentional), initial encounter; T42.6X1A Poisoning by other antiepileptic and sedative-hypnotic drugs, accidental (unintentional), initial encounter; T40.2X1A Poisoning by other opioids, accidental (unintentional), initial encounter; E78.00 Pure hypercholesterolemia, unspecified; Z98.890 Other specified postprocedural states; Z98.1 Arthrodesis status; G62.9 Polyneuropathy, unspecified; G89.29 Other chronic pain; K59.03 Drug induced constipation; G47.10 Hypersomnia, unspecified; I45.10 Unspecified right bundle-branch block; J30.2 Other seasonal allergic rhinitis; K21.9 Gastro-esophageal reflux disease without esophagitis; M43.16 Spondylolisthesis, lumbar region; R09.02 Hypoxemia; R03.0 Elevated blood-pressure reading, without diagnosis of hypertension; R73.9 Hyperglycemia, unspecified; Z79.82 Long term (current) use of aspirin; Z79.890 Hormone replacement therapy; Z79.899 Other long term (current) drug therapy; Z87.891 Personal history of nicotine dependence; Z11.52 Encounter for screening for COVID-19
CPT/HCPCS: 71046; 71275; 80048; 80053; 80306; 84484; 85025; 85027; 87811; 93005; 93306; 96361; 96374; 97116; 97163; 97166; 97530; 97535; 99285; Q9967

== ENCOUNTER → 2024-09-18 12:34 | Outpatient (REF) | payer MEDICARE, SELFPAY | LOC: WDC 12:34 | PROVIDERS: ATTENDING PHYSICIAN Family Medicine | DX: Z12.31 Encounter for screening mammogram for malignant neoplasm of breast (principal) | CPT/HCPCS: 77063; 77067 ==

== ENCOUNTER 2024-12-11 12:31 | Emergency (ER) | payer MEDICARE, SELFPAY ==
[2024-12-11] VITALS (7 sets, daily range): BP systolic 93–141; BP diastolic 56–92; BMI 35.5
[2024-12-11 13:59] LABS: % Basophils 0.5 % (0-2); % Immature Granulocytes 0.4 % (0-0.5); % Lymphocytes 6.9 % (20.5-51.1); % Monocytes 9.5 % (1.7-9.3); % Neutrophils 82.7 % (42.2-75.2); Absolute Basophils 0.1 10^3/uL (0-0.2); Absolute Immature Granulocytes 0.1 10^3/uL (0-0.05); Absolute Lymphocytes 0.9 10^3/uL (1.2-3.4); Absolute Monocytes 1.3 10^3/uL (0.1-0.6); Absolute Neutrophils 10.9 10^3/uL (1.4-6.5); Hemoglobin 10.9 g/dL (12.0-16.0); Mean Corp Hgb Conc. 32.1 g/dL (33.0-37.0); Mean Corpuscular Hgb 30.9 pg (27.0-31.0); Mean Corpuscular Volume 96.3 fL (81.0-99.0); Nucleated Red Blood Cells % 0 %; Platelet Count 576 10^3/uL (130-400); Red Blood Cell Count 3.53 10^6/uL (4.20-5.40); Red Cell Dist. Width 13.8 % (11.5-14.5); White Blood Cell Count 13.2 10^3/uL (4.8-10.8)
--- NOTE | 2024-12-11 14:03 | ED.GENMED ---
History of Present Illness
<Andrew Longo PA-C - Last Filed: 12/11/24 15:43>
General
Chief Complaint: Post Operative Problem(s)
Source: patient
Exam Limitations: none
Time Seen by Provider: 12/11/24 13:43
History of Present Illness
History of Present Illness:
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 3 weeks ago, she had her right knee replaced by Dr. Chauhan at [facility]. She had been
doing well in physical therapy for the first 2 weeks however starting her third week she had increased pain and swelling. She started with redness about 4 days ago. She spoke with the team at the office who started on Keflex. She has had a total
of 3 doses of this. She notes chills and sweats but no measurable fever. She notes increased pain to the knee at rest as well as when bearing weight. No vomiting.
Past History
<Andrew Longo PA-C - Last Filed: 12/11/24 15:43>
Past History
ED Past Medical History: GERD, Hypercholesterolemia, Hypothyroidism and Other (Back pain, Neuropathy, Numbness arms and legs, PNA. )
ED Past Surgical History: Appendectomy, Cholecystectomy, Orthopedic (Rotator cuff repair, knee surgery, Carpal tunnel right, Right foot surgery, Laminectomy, Nerve ablation, Spinal fusion ) and Other (Pancreatic duct sphincterotomy, cataracts, Right
retinal tear, )
Social History
Tobacco: Former smoker
Alcohol: Occasional
Drug: None
Personal: Single
Living: alone
Phy Exam
<Andrew Longo PA-C - Last Filed: 12/11/24 15:43>
Physical Exam
Physical Exam:
General: Well-appearing female no acute respiratory distress
HEENT: Normocephalic atraumatic
Heart: Regular rate and rhythm no murmurs
Lungs: Clear no wheeze
Abdomen is soft nontender nondistended
Skin: Erythema noted to the anterior aspect of the inferior right knee spreading medially and laterally. There is also gamal-incisional erythema over the inferior portion of the incision. No purulent drainage. There is a small knee effusion.
Motion of the knee is limited to about 20 degree flexion
Vascular: 2+ DP pulses bilateral feet
Course
<Andrew Longo PA-C - Last Filed: 12/11/24 15:43>
Orders/Labs/Results
Orders:
Orders
12/11/24 13:30
Blood Culture Q30M
GELY Source: Blood/Venous
Specimen Description:
12/11/24 13:45
CRP [C-Reactive Protein] Urgent
Blood Culture Q30M
GELY Source: Blood/Venous
Specimen Description:
12/11/24 13:48
CMP [Comprehensive Metabolic Panel] Urgent
Complete Blood Count/With Diff Urgent
Erythrocyte Sed Rate Urgent
Comment: ADD ON
12/11/24 13:56
CR Knee- Right 4 Or More View* Urgent
Comment:
Reason For Exam: pain
12/11/24 14:10
Add On- LAB Urgent
Tests Added?: ESR
12/11/24 14:25
CeFAZolin 2 GRAM [Ancef] 2 grams in 10 ml IV NOW
Abnormal Lab Results
12/11/24 12/11/24
13:45 13:48
WBC 13.2 H 10^3/uL
(4.8-10.8)
RBC 3.53 L 10^6/uL
(4.20-5.40)
Hgb 10.9 L g/dL
(12.0-16.0)
Hct 34.0 L %
(37.0-47.0)
MCHC 32.1 L g/dL
(33.0-37.0)
Plt Count 576 H 10^3/uL
(130-400)
Abs Immat Gran (auto) 0.1 H 10^3/uL
(0-0.05)
Absolute Neuts (auto) 10.9 H 10^3/uL
(1.4-6.5)
Absolute Lymphs (auto) 0.9 L 10^3/uL
(1.2-3.4)
Absolute Monos (auto) 1.3 H 10^3/uL
(0.1-0.6)
Neutrophils % 82.7 H %
(42.2-75.2)
Lymphocytes % 6.9 L %
(20.5-51.1)
Monocytes % 9.5 H %
(1.7-9.3)
ESR 80 H mm/hour
(0-20)
Carbon Dioxide 32 H mmol/L
(22-30)
Glucose 134 H mg/dl
(70-99)
Alkaline Phosphatase 143 H U/L
(38-126)
C-Reactive Protein 78.50 H mg/L
(0.0-10.00)
12/11/24 13:48
12/11/24 13:48
Vital Signs
Initial and Last Documented VS:
Initial Vital Signs
Temp Pulse Resp BP Pulse Ox
98.7 F 89 18 136/92 97
12/11/24 12:32 12/11/24 12:32 12/11/24 12:32 12/11/24 12:32 12/11/24 12:32
Last Documented Vital Signs
Temp Pulse Resp BP Pulse Ox
99.3 F 89 18 132/56 94
12/11/24 15:29 12/11/24 15:29 12/11/24 15:29 12/11/24 15:29 12/11/24 15:29
<Sivakumar Arango MD - Last Filed: 12/11/24 15:09>
Orders/Labs/Results
Orders:
Orders
12/11/24 13:30
Blood Culture Q30M
GELY Source: Blood/Venous
Specimen Description:
12/11/24 13:45
CRP [C-Reactive Protein] Urgent
Blood Culture Q30M
GELY Source: Blood/Venous
Specimen Description:
12/11/24 13:48
CMP [Comprehensive Metabolic Panel] Urgent
Complete Blood Count/With Diff Urgent
Erythrocyte Sed Rate Urgent
Comment: ADD ON
12/11/24 13:56
CR Knee- Right 4 Or More View* Urgent
Comment:
Reason For Exam: pain
12/11/24 14:10
Add On- LAB Urgent
Tests Added?: ESR
12/11/24 14:25
CeFAZolin 2 GRAM [Ancef] 2 grams in 10 ml IV NOW
Abnormal Lab Results
12/11/24 12/11/24
13:45 13:48
WBC 13.2 H 10^3/uL
(4.8-10.8)
RBC 3.53 L 10^6/uL
(4.20-5.40)
Hgb 10.9 L g/dL
(12.0-16.0)
Hct 34.0 L %
(37.0-47.0)
MCHC 32.1 L g/dL
(33.0-37.0)
Plt Count 576 H 10^3/uL
(130-400)
Abs Immat Gran (auto) 0.1 H 10^3/uL
(0-0.05)
Absolute Neuts (auto) 10.9 H 10^3/uL
(1.4-6.5)
Absolute Lymphs (auto) 0.9 L 10^3/uL
(1.2-3.4)
Absolute Monos (auto) 1.3 H 10^3/uL
(0.1-0.6)
Neutrophils % 82.7 H %
(42.2-75.2)
Lymphocytes % 6.9 L %
(20.5-51.1)
Monocytes % 9.5 H %
(1.7-9.3)
ESR 80 H mm/hour
(0-20)
Carbon Dioxide 32 H mmol/L
(22-30)
Glucose 134 H mg/dl
(70-99)
Alkaline Phosphatase 143 H U/L
(38-126)
C-Reactive Protein 78.50 H mg/L
(0.0-10.00)
12/11/24 13:48
12/11/24 13:48
Vital Signs
Initial and Last Documented VS:
Initial Vital Signs
Temp Pulse Resp BP Pulse Ox
98.7 F 89 18 136/92 97
12/11/24 12:32 12/11/24 12:32 12/11/24 12:32 12/11/24 12:32 12/11/24 12:32
Last Documented Vital Signs
Temp Pulse Resp BP Pulse Ox
99.3 F 89 18 132/56 94
12/11/24 15:29 12/11/24 15:29 12/11/24 15:29 12/11/24 15:29 12/11/24 15:29
<Andrew Longo PA-C - Last Filed: 12/11/24 15:43>
MDM/Problems Addressed
Differential Diagnosis Includes:
Patient presents with concern of redness swelling and pain to the right knee. Consider cellulitis versus septic arthritis versus bursitis
She has had 3 doses of Keflex. Will check labs x-ray of the knee blood cultures and inflammatory markers
<Andrew Longo PA-C - Last Filed: 12/11/24 15:43>
*Critical Care Note
Total Time (30-74mins, 75-104mins- exclusive of procedures): Not Applicable
<Andrew Longo PA-C - Last Filed: 12/11/24 15:43>
Update Note
Update Note:
Discussed with emergency room attending saw the patient. Emergency room attending spoke with orthopedic surgeon of record. I spoke with the hospitalist at [facility] for direct admission for cellulitis in the right knee in the postoperative
period following right knee replacement. White blood cell count is 13.2. Vitals are stable. Afebrile here. She received 2 g of Ancef.
ED Attending Note
<Andrew Longo PA-C - Last Filed: 12/11/24 15:43>
-
Portions of this chart may have been created with voice recognition software.� Occasional wrong word or��sound alike� substitutions may have occurred due to the inherent limitations of voice recognition software.
<Sivakumar Arango MD - Last Filed: 12/11/24 15:09>
ED Attending Note
Patient seen and examined by attending physician: Yes
I performed the substantive portion of visit, reviewed & personally made and approve the management plan that is documented in note by myself or REUBEN.: Yes
ED Attending Note:
Patient with a right knee replacement on 224. Was doing well till 3 days ago. Started having increased pain and redness. Some mild systemic symptoms of low-grade fever. Started Keflex yesterday based on a phone report to patient's orthopedist.
On exam there is erythema and some swelling to the right knee
Across the incision and extending laterally. Decreased range of motion. Warmth and tenderness.
Impression is either cellulitis or possible joint infection. Warrants IV antibiotics orthopedic evaluation and further care. Discussed with patients orthopedics. They will admit to [facility]. Patient is comfortable with this approach.
Discharge Plan
Departure
Patient Disposition: Other
Date of Disposition: 12/11/24
Time of Disposition: 15:42
Discharge Problem:
Cellulitis
Prescriptions:
No Action
atorvastatin 20 mg Tablet
20 mg PO HS
levothyroxine [Synthroid] 200 mcg Tablet
225 mcg PO DAILY
omeprazole 20 mg Tablet,Delayed Release (Dr/Ec)
20 mg PO HS
Centrum Silver Women 8 mg iron-400 mcg-50 mcg Tablet
1 tab PO DAILY
biotin 5,000 mcg Tablet,Chewable
5,000 mcg PO DAILY
cetirizine 5 mg Tablet
5 mg PO DAILY PRN (Reason: seasonal allergy)
montelukast 10 mg Tablet
10 mg PO HS
cyclobenzaprine 10 mg Tablet
10 mg PO DAILYPRN PRN (Reason: muscle spasms) Qty: 0 0RF
Rx Instructions:
Caution with [place] - can cause drowsiness.
Take only as needed/as directed.
aspirin 81 mg Tablet,Delayed Release (Dr/Ec)
81 mg PO BID
Rx Instructions:
for 30 days --til 12/22 post op knee surgery
docusate sodium [Colace] 100 mg capsule
100 mg PO BID Qty: 0 0RF
cholecalciferol (vitamin D3) 50 mcg (2,000 unit) Tablet
50 mcg PO DAILY
acetaminophen 325 mg Tablet
650 mg PO TID Qty: 30 0RF
polyethylene glycol 3350 [HealthyLax] 17 gram Powder In Packet
17 g PO DAILY Qty: 30 0RF
tramadol 50 mg Tablet
50 mg PO Q6H PRN (Reason: Mod pain) Qty: 0 0RF
Referrals:
Nadia Brenner MD [Family Provider] -
Hospital Transfer
Other hospital: [facility]
I certify that the patient requires transfer: Yes
Discussed case with accepting physician: Dr. Santos
Reason for transfer: continuity of care PCP
Interventions
Interventions:
*Risk Screen - Suicide Last Done: 12/11/24 12:32
*General Assessment Last Done: 12/11/24 12:32
*Neglect/Abuse Screening Last Done: 12/11/24 12:32
*ED- Fall Risk Assessment Last Done: 12/11/24 13:15
*ED COVID-19 Vaccine History Last Done: 12/11/24 12:32
ED-Skin Assessment Last Done: 12/11/24 13:15
Discharge Date and Time
Print Language: MALAY
[2024-12-11 14:18] LABS: ALT (SGPT) 20 U/L (0-35); AST (SGOT) 29 U/L (14-36); Albumin 4.1 g/dl (3.5-5.0); Alkaline Phosphatase 143 U/L (38-126); Blood Urea Nitrogen 15 mg/dl (7-17); Calcium 9.6 mg/dl (8.4-10.2); Carbon Dioxide 32 mmol/L (22-30); Chloride 101 mmol/L (98-107); Estimated Creatinine Clearance 83 ml/min; Glucose 134 mg/dl (70-99); Potassium 4.5 mmol/L (3.5-5.1); Sodium 140 mmol/L (135-145); Total Bilirubin 1.1 mg/dl (0.2-1.3); Total Protein 7.9 g/dl (6.3-8.2); eGFR > 60.00
[2024-12-11] MEDS: ANCEF 10 IV (14:32)
[2024-12-11 15:23] LABS: Erythrocyte Sed Rate 80 mm/hour (0-20)
[2024-12-11] MEDS: TYLENOL 1000 MG PO (17:33)
[2024-12-11] MEDS: NSS 500 IV (18:32)
[2024-12-11 18:37] LABS: Glucose - Point of Care 104 mg/dl (70-99)
== END 2024-12-11 22:29 | disposition short-term general hospital (02) ==
LOC: EMR 12:31
PROVIDERS: Physician Assistant; EMERGENCY PHYSICIAN Emergency Medicine; FAMILY PHYSICIAN Family Medicine
DX: T81.49XA Infection following a procedure, other surgical site, initial encounter (principal); L03.115 Cellulitis of right lower limb; Y83.8 Other surgical procedures as the cause of abnormal reaction of the patient, or of later complication, without mention of misadventure at the time of the procedure; Z96.651 Presence of right artificial knee joint; E78.00 Pure hypercholesterolemia, unspecified; E06.3 Autoimmune thyroiditis; Z87.891 Personal history of nicotine dependence
CPT/HCPCS: 96374; 96361; 99285; 73564; 80053; 82962; 85025; 85652; 86140; 87040

== ENCOUNTER → 2025-05-01 14:07 | Outpatient (REF) | payer MEDICARE, SELFPAY | LOC: HWRAD 14:07 | PROVIDERS: ATTENDING PHYSICIAN Orthopaedic Surgery Sports Medicine; FAMILY PHYSICIAN Family Medicine | DX: M97.11XD Periprosthetic fracture around internal prosthetic right knee joint, subsequent encounter (principal); M25.561 Pain in right knee; Z96.651 Presence of right artificial knee joint | CPT/HCPCS: 73700 ==

== ENCOUNTER → 2025-09-21 12:32 | Outpatient (REF) | payer MEDICARE, SELFPAY | LOC: WDC 12:32 | PROVIDERS: ATTENDING PHYSICIAN Family Medicine | DX: Z12.31 Encounter for screening mammogram for malignant neoplasm of breast (principal) | CPT/HCPCS: 77063; 77067 ==